=== PATIENT | male | born 1980 | race Caucasian/White ===

== ENCOUNTER 2023-02-05 09:37 | Outpatient (CLI) | payer MEDICAID, OTHER, SELFPAY | END 2023-02-05 09:38 | disposition home or self-care (01) | PROVIDERS: PCP Physician Assistant Medical; Visit Provider Physician Assistant Medical | DX: Z11.3 Encounter for screening for infections with a predominantly sexual mode of transmission (principal) | CPT/HCPCS: 86592; 86703; 86706; 86803; 87252; 87340; 87491; 87529; 87591 ==

== ENCOUNTER 2024-07-14 13:41 | Outpatient (CLI) | payer MEDICAID, SELFPAY ==
--- OUTSIDE RECORDS SUMMARY | 2024-07-14 13:46 | XMS_ITS | Clinical Summary ---
Author Organization [facility] Address [address], [place] [address] Care Team Providers Care Hr Business Partner Consultant Name Role Phone Osorio Dunn PA-C Primary Care Provider [phone] Source Comments You are receiving this document as you are listed as the primary care provider,follow-up provider, or the patient has been referred to you for consultation.This is in compliance with the Medicare and[facility] EHR Incentive Program,which states Providers who transition their patient to another setting of careor provider of care or refers their patient to another provider of care shouldprovide summary care record for each transition of care or referral. [facility] Allergies Active Allergy Reactions Criticality Noted Date Comments Gabapentin Gastrointestinal 01/29/2023 Methocarbamol Gastrointestinal 06/16/2023 Medications Medication Sig Dispensed Refills Start Date End Date Status acetaminophen (TYLENOL) 325 MG tablet Take 2 Tablets (650 mg) by mouth three times a day as needed for Pain. Work comp 100 Tablet 1 3 Active cetirizine (ZYRTEC) 10 MG tablet Take 1 Tablet (10 mg) by mouth daily. 30 Tablet 4 Active ALBUterol sulfate HFA 108 (90 Base) MCG/ACT inhaler Inhale 2 Puffs 4 times a day. 8 g 4 Active fluticasone propionate (FLONASE) 50 MCG/ACT nasal solutionIndication s:Throat irritation,Metalli c taste Place 2 Sprays into both nostrils daily. decrease to 1 spray per nostril daily if symptoms controlled 16 g 11 4 Active omeprazole (PRILOSEC) 20 MG capsuleIndications :Throat irritation,Metalli c taste Take 1 Capsule (20 mg) by mouth daily. Take 1 hour before a meal. 30 Capsule 1 4 07/11/20 25 Active ALBUterol sulfate HFA inhalation Inhale 1-2 puffs every 4 hours as needed for Wheezing. 8 g 0 4 07/05/20 24 Discontinued(*M ed change OR same med OR reorder, new dose/directions ) clotrimazole (LOTRIMIN) 1 % cream Apply topically two times a day. Was prescribed by pharmacist to relieve white spots found on both sides of neck, has not been working 07/11/20 24 Discontinued omeprazole (PRILOSEC) 20 MG capsule Take 1 Capsule (20 mg) by mouth daily. Take 1 hour before a meal. 90 Capsule 3 3 07/11/20 24 Discontinued(*M ed change OR same med OR reorder, new dose/directions ) tiZANidine (ZANAFLEX) 2 MG tablet Take 1-2 Tablets (2-4 mg) by mouth at bedtime as needed for Other (Muscle pain and tension). 60 Tablet 1 3 07/11/20 24 Discontinued olopatadine (PATADAY) 0.2 % eye drop solution Place 1 Drop into both eyes daily. 2.5 mL 3 07/11/20 24 Discontinued ondansetron (ZOFRAN-ODT) 4 MG disintegrating tablet Take 1 Tablet (4 mg) by mouth every 8 hours as needed for Nausea. 2 Tablet 4 07/11/20 24 Discontinued dexAMETHasone (DECADRON) 4 MG tablet Take 2 tablets today, one tomorrow and one in 3 days if throat still sore 4 Tablet 4 07/11/20 24 Discontinued metroNIDAZOLE (FLAGYL) 500 MG tablet Take 4 Tablets (2,000 mg) by mouth once. 4 07/11/20 24 Discontinued predniSONE (DELTASONE) 20 MG tabletIndications: Exposure to chemical inhalation,Dry cough,Wheezing Take 2 Tablets (40 mg) by mouth daily. 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 Allergic rhinitis 02/06/2014 Hypoesthesia 02/06/2014 Encounters Date Type Department Care Team Description 07/13/2024 Telephone [facility] [address] [place] [address] Osorio Dunn PA-C Plan of Care 07/11/2024 1:50 PM CDT Lab Visit [facility] [address] [place] [address] Hematuria, unspecified type; Fatigue, unspecified type 07/11/2024 11:30 AM CDT Office Visit [facility] [id number] [place] [address] Osorio Dunn PA-C Exposure to chemical inhalation (Primary Dx); Throat irritation; Hematuria, unspecified type; Dry cough; Metallic taste; Fatigue, unspecified type; Pleuritic chest pain; Wheezing 07/11/2024 Telephone [facility] [address] [place] [address] Osorio Dunn PA-C Plan of Care 07/06/2024 Telephone [facility] [address] [place] [address] Unassigned, Provider REFERRAL REQUEST 07/05/2024 5:40 PM CDT [facility] [address] [place] [address] Jean Marie aJved MD Exposure to chemical inhalation; Acute bronchospasm; Encounter related to worker's compensation claim 05/10/2024 1:10 PM CDT Lab Visit [facility] [address] [place] [phone] Routine screening for STI (sexually transmitted infection) 05/10/2024 12:40 PM CDT Office Visit [facility] [address] [place] [address] Dennis Tsai MBBS Pharyngitis, unspecified etiology; Routine screening for STI (sexually transmitted infection) from Last 3 Months Immunizations Name Administration Dates Next Due DTaP, Unspecified Formulation 11/14/2019 Flu Vac (3+ yrs) 07/20/2013,09/21/2008, 7 Flu Vac Preserv Free (3+yrs) 07/17/2010,08/23/20 09 Fluzone Qiv Multidose Vial 0.25 (6-35 Mos) 08/26,07/24/2017 HepB Adult (Engerix-B, 20+ y rs, 3 dose series) 08/04/2015,11/09/2013 MMR 09/05/2015,08/06/2015 Td 10/16/1997 Tdap 11/14/2019,09/13/2010 Varicella 09/05/2015,08/06/2015 Social History Tobacco Use Types Packs/Day Years Used Date Smoking Tobacco: Former Cigarettes Smokeless Tobacco: Never Tobacco Cessation:Counseling Given: Not Answered Alcohol Use Standard Drinks/Week Comments Not Currently 0 (1 standard drink = 0.6 oz pur e alcohol) PHQ-2 Answer Date Recorded PHQ-2 Score 4 07/11/2024 Sex and Gender Information Value Date Recorded Sex Assigned at Not on file Gender Identity Not on file Sexual Orientation Not on file Last Filed Vital Signs Vital Sign Reading Time Taken Comments Blood Pressure 113/61 07/11/2024 10:51 AM CDT Pulse 81 07/11/2024 10:51 AM CDT Temperature 36.4 ??C (97.6 ??F) 07/05/2024 5:22 PM CD T Respiratory Rate 18 07/05/2024 5:22 PM CDT Oxygen Saturation 97% 07/05/2024 5:22 PM CDT Inhaled Oxygen Concentration - - Weight 79.3 kg (174 lb 12.8 oz) 024 10:51 AM CDT Height 159.7 cm (5' 2.87) 07/11/2024 1 0:51 AM CDT Body Mass Index 31.09 07/11/2024 10:51 AM CDT Plan of Treatment Upcoming Encounters Date Type Department Care Team (Late st Contact Info) Description 07/21/2024 9:30 AM CDT Appointment [facility] [address] [place] [address] [address] [place] [address] Dioni Gamble PA-C [address] [place] [address] Health Maintenance Due Date Last Done Comments Colon Cancer Screening Plan Due 1978 Diabetes Screening- (based on age and BMI) 1978 Hep B Screening ([employer]) 1979 Adult Preventive Visit 1996 Cholesterol 2013 HepB (3) 09/29/2015 08/04/2015, 11/09/2013 COVID-19 Vaccine ( season) 2024 Influenza (#1) 2024 08/26/2019, 03/2017, 07/20/2013, Additional history exists Zoster/Shingles (1 of 2) 2028 DTaP/Tdap/Td (4 - Tdap) 11/14/2029 11/14/19, 11/14/2019, 09/13/2010, Additional history exists HIV Screening (Preventive Services) Completed 05/10/2024, 06/02/2023, 04/23/2022, Additional history exists Hep C Screening (Preventive Services) Completed 05/10/2024 HepA Aged Out No longer eligi ble based on patient's age to complete this topic Hib Aged Out No longer eligi ble based on patient's age to complete this topic IPV (Polio) Aged Out No longer eligi ble based on patient's age to complete this topic MCV4 Aged Out No longer eligi ble based on patient's age to complete this topic Pneumococcal Aged Out No longer eligi ble based on patient's age to complete this topic Procedures Procedure Name Priority Date/Time Associated Diagnosis Comments UA MICRO Routine 07/11/2024 11:47 AM CDT Hematuria, unspecified type URINALYSIS ROUTINE, MICRO/CULTURE IF POS Routine 07/11/2024 11:47 AM CDT Hematuria, unspecified type VITAMIN D 25-HYDROXY, TOTAL Routine 07/11/2024 11:44 AM CDT Fatigue, unspecified type VITAMIN B12 ONLY Routine 07/11/2024 11:4 4 AM CDT Fatigue, unspecified type TRANSFERRIN Routine 07/11/2024 11:44 AM CDT Fatigue, unspecified type FERRITIN Routine 07/11/2024 11:44 AM CDT Fatigue, unspecified type COMPLETE BLOOD COUNT-NO DIFF Routine 07/11/2024 11:44 AM CDT Fatigue, unspecified type COMPREHENSIVE METABOLIC PANEL Routine 07/11/2024 11:44 AM CDT Fatigue, unspecified type CHLAMYDIA & GC, URINE (14 YEARS AND OLDER) Routine 05/10/2024 1:14 PM CDT Routine screening for STI (sexually transmitted infection) TREPONEMA SCREEN Routine 05/10/2024 1:09 PM CDT Routine screening for STI (sexually transmitted infection) HEPATITIS C ANTIBODY, WITH REFLEX Routine 05/10/2024 1:09 PM CDT Routine screening for STI (sexually transmitted infection) HIV 1/2 AG/AB 4TH GEN Routine 05/10/2024 1:09 PM CDT Routine screening for STI (sexually transmitted infection) STREP GROUP A, MOLECULAR DETECTION STAT 05/10/2024 12:41 PM CDT Pharyngitis, unspecified etiology from Last 3 Months Results * (ABNORMAL) Urinalysis Routine, Micro/Culture if Pos: Clean Catch (07/11/2024 11:47 AM CDT) Urine Culture Comment Urinalysis results do not meet criteria for urine culture reflex. 07/11/2024 12:06 PM CDT [facility] Urine Color Straw 07/11/2024 12:06 PM CDT [facility] Urine Clarity Clear Clear 07/11/2024 12:06 PM CDT [facility] Specific [place], Urine 1.020 1.005 - 1.030 07/11/2024 12:06 PM [facility] PH Urine 6.5 5.0 - 8.0 07/11/2024 12:06 PM [facility] Protein, Urine Qual (mg/dL) Negative Neg/Trace 07/11/2024 12:06 PM [facility] Glucose Urine Qual (mg/dL) Negative Negative 07/11/2024 12:06 PM [facility] Ketones, Urine (mg/dL) Negative Negative 07/11/2024 12:06 PM [facility] Urobilinogen, Urine (EU/dL) 0.2 <2.0 07/11/2024 12:06 PM [facility] Bilirubin Urine Negative Negative 07/11/2024 12:06 PM [facility] Blood, Urine Small(A) Neg/Trace 07/11/2024 12:06 PM [facility] Nitrite Urine Negative Negative 07/11/2024 12:06 PM [facility] Leukocyte Est. Negative Negative 07/11/2024 12:06 PM [facility] Urine Source Clean Catch 07/11/2024 12:06 PM [facility] Urine URINE SPECIMEN COLLECTION, CLEAN CATCH / Unknown Non-blood Collection / Unknown 07/11/2024 11:47 AM CDT 07/11/2024 11:47 AM CDT Osorio Dunn PA-C LAB_1 [facility] [address] [place] [address] * (ABNORMAL) Urine Microscopic Evaluation: Clean Catch (07/11/2024 11:47 AM CDT) Red Blood Cells 4-7(A) 0 - 3 /HPF 07/11/2024 12:06 PM [facility] White Blood Cells 0-5 0 - 5 /HPF 07/11/2024 12:06 PM [facility] Bacteria Occasional(A) None Seen /HPF 07/11/2024 12:06 PM [facility] Squamous Epithelial Cells Occasional None Seen, Occasiona l, Few /HPF 07/11/2024 12:06 PM [facility] Mucus Present(A) None Seen /HPF 07/11/2024 12:06 PM CDT [facility] Urine URINE SPECIMEN COLLECTION, CLEAN CATCH / Unknown Non-blood Collection / Unknown 07/11/2024 11:47 AM CDT 07/11/2024 11:47 AM CDT Osorio Marty Mona JULES LAB_1 Performing Organization Address [facility]/ZIP Co de Phone Number [facility] [address] [place] [address] * (ABNORMAL) Vitamin D 25-Hydroxy, Total (07/11/2024 11:44 AM CDT) Vitamin D, 25-OH, Total 26(L) 30 - 80 ng/mL 07/11/2024 5:44 PM T [facility] Blood Venipuncture / Unknown 07/11/2024 11:44 AM CDT 07/11/2024 11:44 AM CDT Narrative [facility] - 07/11/2024 5:44 PM CDT Expected values Deficiency: <20 ng/mL Insufficiency: 20-29 ng/mL Optimum: 30-80 ng/mL Possible toxicity: >80 ng/mL Osorio Dunn PA-C LAB_1 Performing Organization Address [facility] Co de Phone Number [facility] [address] [place], [place] [phone] [place] [address] * Comprehensive Metabolic Panel (07/11/2024 11:44 AM CDT) Sodium 140 136 - 145 mmol/L 07/11/2024 3:39 PM T [facility] Potassium 4.0 3.5 - 5.1 mmol/L 07/11/2024 3:39 PM T [facility] Chloride 106 98 - 109 mmol/L 07/11/2024 3:39 PM T [facility] CO2 24 20 - 29 mmol/L 07/11/2024 3:39 PM T [facility] Anion Gap 10 6 - 16 mmol/L 07/11/2024 3:39 PM T [facility] Calcium 9.5 8.4 - 10.4 mg/dL 07/11/2024 3:39 PM [facility] BUN 15 7 - 26 mg/dL 07/11/2024 3:39 PM [facility] Creatinine 0.80 0.73 - 1.18 mg/dL 07/11/2024 3:39 PM [facility] Alkaline Phosphatase 74 40 - 150 U/L 07/11/2024 3:39 PM [facility] AST (SGOT) 22 10 - 40 U/L 07/11/2024 3:39 PM [facility] ALT (SGPT) 22 <=55 U/L 07/11/2024 3:39 PM [facility] Bilirubin, Total 0.4 0.2 - 1.2 mg/dL 07/11/2024 3:39 PM [facility] Protein, Total 7.5 6.4 - 8.3 g/dL 07/11/2024 3:39 PM [facility] Albumin 4.0 3.5 - 5.0 g/dL 07/11/2024 3:39 PM [facility] Glucose 98 70 - 100 mg/dL 07/11/2024 3:39 PM [facility] Comment:The given reference range is for the fasting state. Non-fasting reference range for glucose is 70 - 180 mg/dL. GFR, Estimated >60 >60 mL/min/1.7 3m2 07/11/2024 3:39 PM [facility] Hours Fasting 4.0 8 - 12 Hours 07/11/2024 3:39 PM [facility] Blood Venipuncture / Unknown 07/11/2024 11:44 AM CDT 07/11/2024 11:44 AM CDT Osorio Dunn PA-C LAB_1 [facility] [address] [place] [address] * (ABNORMAL) Complete Blood Count-No Diff (07/11/2024 11:44 AM CDT) WBC 5.9 3.5 - 10.5 x10(9)/L 07/11/2024 11:49 AM [facility] RBC 4.70 4.32 - 5.72 x10(12)/L 07/11/2024 11:49 AM [facility] Hemoglobin 14.8 13.5 - 17.5 g/dL 07/11/2024 11:49 AM [facility] HCT 41.7 38.8 - 50.0 % 07/11/2024 11:49 AM [facility] MCV 88.7 80.0 - 100.0 fL 07/11/2024 11:49 AM [facility] MCH 31.5 27.6 - 33.3 pg 07/11/2024 11:49 AM [facility] MCHC 35.5(H) 31.5 - 35.2 g/dL 07/11/2024 11:49 AM [facility] RDW 13.2 11.9 - 15.5 % 07/11/2024 11:49 AM [facility] Platelets 263 150 - 450 x10(9)/L 07/11/2024 11:49 AM [facility] Automated NRBC 0 <=0 /100 WBC 07/11/2024 11:49 AM [facility] Blood Venipuncture / Unknown 07/11/2024 11:44 AM CDT 07/11/2024 11:44 AM CDT Osorio Dunn PA-C LAB_1 Performing Organization Address [facility]/ZIP Co de Phone Number [facility] [address] [place] [address] * Transferrin (07/11/2024 11:44 AM CDT) [facility] Transferrin 247 174 - 364 mg/dL 07/11/2024 4:56 PM CDT [facility] Blood Venipuncture / Unknown 07/11/2024 11:44 AM CDT 07/11/2024 11:44 AM CDT Osorio Dunn PA-C LAB_1 Performing Organization Address City/[facility]/ZIP Co de Phone Number [facility] [address] * Ferritin (07/11/2024 11:44 AM CDT) Pathologist [facility] Ferritin 268 22 - 275 ng/mL 07/11/2024 5:36 PM CDT [facility] Blood Venipuncture / Unknown 07/11/2024 11:44 AM CDT 07/11/2024 11:44 AM CDT Osorio Dunn PA-C LAB_1 Performing Organization Address [facility] Co de Phone Number [facility] [address] [place] [address] * Vitamin B12 Only (07/11/2024 11:44 AM CDT) Pathologist [facility] Vitamin B12 423 213 - 816 pg/mL 07/11/2024 5:43 PM CDT [facility] Blood Venipuncture / Unknown 07/11/2024 11:44 AM CDT 07/11/2024 11:44 AM CDT Osorio Dunn PA-C LAB_1 Performing Organization Address [facility] de Phone Number [facility] [address] [place] [address] * Chlamydia & GC, Urine (05/10/2024 1:14 PM CDT) Pathologist [facility] Chlamydia Trachomatis STD Not Detected Not Detected 05/11/2024 12:07 AM CDT [facility] N. gonorrhoeae STD Not Detected Not Detected 05/11/2024 12:07 AM CDT [facility] Urine STD (Urine for STD) Non-blood Collection / Unknown 05/10/2024 1:14 PM CDT 05/10/2024 1:14 PM CDT Narrative [facility] - 05/11/2024 12:07 AM CDT Test performed by Property Insurance Claims Examiner Mediated Amplification (TMA). Urine Volume submitted was greater than 30 ml. Excess collection volume may decrease test sensitivity. Recollection suggested if clinically indicated. Dennis PATRICIA LAB_1 Performing Organization Address City/[facility]/ZIP Co de Phone Number [facility] [address] * Treponema Screen (05/10/2024 1:09 PM CDT) Treponema Screen Interpretation Non Reactive Non Reactive 05/10/2024 6:30 PM CDT [facility] Blood Venipuncture / Unknown 05/10/2024 1:09 PM CDT 05/10/2024 1:09 PM CDT Dennis PATRICIA LAB_1 Performing Organization Address [facility] Co de Phone Number [facility] [address] [place] [address] * HIV 1/2 Ag/Ab 4th Generation (05/10/2024 1:09 PM CDT) Pathologist [facility] HIV 1/2 Antigen/Antib annetta (4th generation) Negative (Non Reactive) Negative (Non Reactive) 05/10/2024 8:55 PM CDT [facility] Comment:HIV-1 p24 Antigen an d HIV-1/HIV-2 Antibody not detected Blood Venipuncture / Unknown 05/10/2024 1:09 PM CDT 05/10/2024 1:09 PM CDT Dennis Tsai BELEM LAB_1 Performing Organization Address [facility] Co de Phone Number [facility] [address] * Hepatitis C Antibody, with Reflex (05/10/2024 1:09 PM CDT) Hepatitis C Antibody Negative (Non Reactive) Negative (Non Reactive) 05/10/2024 8:55 PM CDT [facility] Comment:Antibodies to HCV no t detected. Does not exclude the possiblity of exposure to HCV. Blood Venipuncture / Unknown 05/10/2024 1:09 PM CDT 05/10/2024 1:09 PM CDT Dennis Jones Eulalio CORDON LAB_1 [facility] [address] [place], [place] [address] * STREP GROUP A, Molecular Detection-Collect Now in current encounter (05/10/2024 12:41 PM CDT) Group A Strep Not Detected Not Detected 024 1:44 PM CDT [facility] Comment:Methodology: Qualita tive real-time PCR assay Swab (Source Required) THROAT SWAB / Unknown Non-blood Collection / Unknown 05/10/2024 12:41 PM CDT 05/10/2024 12:55 PM CDT Dennis Jones Eulalio PATRICIA LAB_1 Performing Organization Address City/[facility]/ZIP Co de Phone Number [facility] [address] [place] [address], [facility] from Last 3 Months Care Teams Hr Business Partner Consultant Relationship Specialty Start Date End Date Osorio Dunn PA-C [address] [address] [phone] PCP - General Physician Travel Physical Therapist 07/11/24
--- OUTSIDE RECORDS SUMMARY | 2024-07-14 13:46 | XMS_ITS | Encounter Summary ---
Author Organization [facility] Address [address], [place] [address] Care Team Providers Care Press Brake Operator Name Role Phone Osorio Garcia PA-C Primary Care Provider [phone] Reason for Referral * Procedure/Equipment (Routine) - Incomplete Specialty Diagnoses / Procedures Referred By Contac t Referred To Contact Diagnoses Exposure to chemical inhalation Throat irritation Dry cough Wheezing Procedures CT Chest WO IV Cont Osorio Garcia PA-C [address] [place] [address] Referral ID Status Reason Start Date Expiration Date V isits Requested Visits Authorized [id number] Incomplete 07/11/2024 10/10/2025 1 1 Reason for Visit * Reason Comments Establish Care Referral Occ med Follow-up UC f/u, pt states fo r SOB and fatigue, headache r/t smoke from a building coming into my work. Pt reports ongoing fatigue and cough. Encounter Details Date Type Department Care Team (Late st Contact Info) Description 07/11/2024 11:30 AM CDT Office Visit [facility] [address] [place] [address] Osorio Garcia PA-C [address] [place] [address] Exposure to chemical inhalation (Primary Dx); Throat irritation; Hematuria, unspecified type; Dry cough; Metallic taste; Fatigue, unspecified type; Pleuritic chest pain; Wheezing Social History Tobacco Use Types Packs/Day Years [...] on file Sexual Orientation Not on file documented as of this encounter Last Filed Vital Signs Vital Sign Reading Time Taken Comments Blood Pressure 113/61 07/11/2024 10:51 AM CDT Pulse 81 07/11/2024 10:51 AM CDT Temperature - - Respiratory Rate - - Oxygen Saturation - - Inhaled Oxygen Concentration - - Weight 79.3 kg (174 lb 12.8 oz) 024 10:51 AM CDT Height 159.7 cm (5' 2.87) 07/11/2024 1 0:51 AM CDT Body Mass Index 31.09 07/11/2024 10:51 AM CDT documented in this encounter Patient Instructions * Patient Instructions* Osorio Garcia PA-C - 07/11/2024 11:30 AM CDT It was a pleasure to see you in clinic today! Labs today, I will reach out with results Start taking flonase daily and omeprazole daily Take prednisone 40mg for 5 days, call to schedule CT scan Follow up with occupational medicine provider as scheduled documented in this encounter Progress Notes * Osorio Garcia PA-C - 07/11/2024 11:30 AM CDT Chriss Powell [id number] SUBJECTIVE: CHRISS POWELL is a 44 y.o. male who presents to the clinic for follow up regarding abnormalsymptoms in regards to inhalation at his occupation. 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 Has been seen 3 times in urgent care in regards to his symptoms. 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 He has been experiencing intermittent unspecified fatigue, metallic taste in his mouth, dry cough, shortness of breath with exertion since beginning his new job at [employer]. Has spoken with multiple people in human resources at his occupation andhas been told to see a quality assurance supervisor trim. Denies any fevers, chills. Denies any snoring, denies any nausea or vomiting, abdominal pain.Other coworkers are experiencing similar symptoms. He has tried wearing a mask at work though notes that this leads to worsening difficulty breathing. Patient endorses that he was a former smoker, quit approximately 2004 Does endorse pleuritic chest pain in his posterior ribcage upon exhalation though denies chest pressure. Denies any known injury to the chest or upper back. Notes that his unspecified fatigue and respiratory symptoms will come for a few days at time where he will miss work and then resolve on theirown. When he was seen 06/22/2024 largely unremarkable lab work up outside of incidental hematuria. Was re-evaluated on 07/05/2024 for similar symptoms. He was provided with albuterol inhaler as well as cetirizine for symptomatic cares. Has not noticed any improvement from these interventions. He was given an urgent referral to Occupational Medicine, his appointment is scheduled for 07/21/2024. Was referred to pulmonology though he was told he did not meet criteria for a pulmonology appointment.Patient notes that he was unfortunately having to take his own paid time off in order to be away from work until his upcoming occupational medicine appointment PAST MEDICAL AND SURGICAL HISTORY REVIEWED IN [facility] FAMILY AND SOCIAL HISTORY REVIEWED IN [facility] MEDICATIONS: Outpatient Medications Prior to Visit Medication Sig acetaminophen (TYLENOL) 325 MG tablet Take 2 Tablets (650 mg) by mouth three times a day as needed for Pain. Work comp ALBUterol sulfate HFA 108 (90 Base) MCG/ACT inhaler Inhale 2 Puffs 4 times a day. cetirizine (ZYRTEC) 10 MG tablet Take 1 Tablet (10 mg) by mouth daily. [DISCONTINUED] clotrimazole (LOTRIMIN) 1 % cream Apply topically two times a day. Was prescribed bypharmacist to relieve white spots found on both sides of neck, has not been working (Patient not taking: Reported on 07/28/2023) [DISCONTINUED] dexAMETHasone (DECADRON) 4 MG tablet Take 2 tablets today, one tomorrow and one in 3days if throat still sore (Patient not taking: Reported on 07/11/2024) [DISCONTINUED] metroNIDAZOLE (FLAGYL) 500 MG tablet Take 4 Tablets (2,000 mg) by mouth once. (Patient not taking: Reported on 07/11/2024) [DISCONTINUED] olopatadine (PATADAY) 0.2 % eye drop solution Place 1 Drop into both eyes daily. (Patient not taking: Reported on 07/11/2024) [DISCONTINUED] omeprazole (PRILOSEC) 20 MG capsule Take 1 Capsule (20 mg) by mouth daily. Take 1 hour before a meal. (Patient not taking: Reported on 07/28/2023) [DISCONTINUED] ondansetron (ZOFRAN-ODT) 4 MG disintegrating tablet Take 1 Tablet (4 mg) by mouth every 8 hours as needed for Nausea. (Patient not taking: Reported on 07/11/2024) [DISCONTINUED] tiZANidine (ZANAFLEX) 2 MG tablet Take 1-2 Tablets (2-4 mg) by mouth at bedtime as needed for Other (Muscle pain and tension). (Patient not taking: Reported on 07/28/2023) No facility-administered medications prior to visit. ALLERGIES: Gabapentin and Methocarbamol ROS:NO fever, chills.. No palpitations. No abdominal pain, nausea, vomiting, diarrhea. No black or bloody stools. No urinary symptoms. No abnormal headaches or dizziness. Endorses fatigue, dry cough,irritation of the throat, metallic taste in his mouth, dyspnea on exertion OBJECTIVE BP 113/61 (BP Location: Left Arm, BP Cuff Size: Large) Pulse 81 Ht 1.597 m (5' 2.87) Wt 79.3kg (174 lb 12.8 oz) BMI 31.09 kg/m?? GENERAL: This is a well-developed, well-nourished male in no acute distress. HEENT: Head AT/NC. External ears normal. TMs clear, bony landmarks visible. Nares patent, turbinates without lesions or drainage. Oropharynx non- erythematous. Uvula midline. Dentition in good condition. NECK: Supple, thyroid without enlargement or nodules. No lymphadenopathy. LUNGS: Symmetrical expansion, widespread inspiratory and expiratory wheezing HEART: Regular rate and rhythm. No murmurs. ABDOMEN: Soft, non-tender, no guarding or masses. No HSM. EXTREMITIES: No edema. Strong and equal peripheral pulses. SKIN: No obvious rashes or suspicious lesions PSYCH: Well-oriented. Appropriate mood and affect. NEURO: Speech and gait are normal. ASSESSMENT/PLAN: Chriss was seen today for establish care, referral and follow-up. Diagnoses and all orders for this visit: Exposure to chemical inhalation - CT Chest WO IV Cont; Future Throat irritation - CT Chest WO IV Cont; Future - fluticasone propionate (FLONASE) 50 MCG/ACT nasal solution; Place 2 Sprays into both nostrils daily. decrease to 1 spray per nostril daily if symptoms controlled - omeprazole (PRILOSEC) 20 MG capsule; Take 1 Capsule (20 mg) by mouth daily. Take 1 hour before a meal. Hematuria, unspecified type - Urinalysis Routine, Micro/Culture if Pos: Clean Catch; Future Dry cough - CT Chest WO IV Cont; Future Metallic taste - fluticasone propionate (FLONASE) 50 MCG/ACT nasal solution; Place 2 Sprays into both nostrils daily. decrease to 1 spray per nostril daily if symptoms controlled - omeprazole (PRILOSEC) 20 MG capsule; Take 1 Capsule (20 mg) by mouth daily. Take 1 hour before a meal. Fatigue, unspecified type - Comprehensive Metabolic Panel; Future - Complete Blood Count-No Diff; Future - Ferritin; Future - Transferrin; Future - Vitamin B12 Only; Future - Vitamin D 25-Hydroxy, Total; Future Pleuritic chest pain Wheezing - CT Chest WO IV Cont; Future Discussed with the patient that it was possible he was experiencing his symptoms as a result of occupational exposure. Recommend CT scan of the chest as well as lab evaluation for cause of his fatigue. Suspect he may be experiencing GERD or postnasal drip in regards to the metallic taste in his mouth and generalized throat irritation. Patient should follow up with occupational medicine as previously discussed for further worker's compensation discussion. Osorio Garcia PA-C NB: A voice recognition dictation system was used for this note. Please excuse any typographical errors. documented in this encounter Plan of Treatment Upcoming Encounters Date Type Department Care Team (Late st Contact Info) Description 07/21/2024 9:30 AM CDT Appointment [facility] [address] [place] [address] Dioni Gamble PA-C [address] [place] [address] Scheduled Orders Name Type Priority Associated Diagnoses Orde r Schedule CT Chest WO IV Cont Imaging New Same Day Exposure to chemical inhalation Throat irritation Dry cough Wheezing Expected: 07/11/2024 (Approximate), Expires: 07/11/2025 documented as of this encounter Results * (ABNORMAL) Urinalysis Routine, Micro/Culture if Pos: Clean Catch (07/11/2024 11:47 AM CDT) Urine Culture Comment Urinalysis results do not meet criteria for urine culture reflex. 07/11/2024 12:06 PM [facility] Urine Color Straw 07/11/2024 12:06 PM [facility] Urine Clarity Clear Clear 07/11/2024 12:06 PM [facility] Specific [place], Urine 1.020 1.005 - 1.030 07/11/2024 12:06 PM [facility] PH Urine 6.5 5.0 - 8.0 07/11/2024 12:06 PM [facility] Protein, Urine Qual (mg/dL) Negative Neg/Trace 07/11/2024 12:06 PM [facility] Glucose Urine Qual (mg/dL) Negative Negative 07/11/2024 12:06 PM [facility] Ketones, Urine (mg/dL) Negative Negative 07/11/2024 12:06 PM [facility] Urobilinogen, Urine (EU/dL) 0.2 <2.0 07/11/2024 12:06 PM [facility] Bilirubin Urine Negative Negative 07/11/2024 12:06 PM [facility] Blood, Urine Small(A) Neg/Trace 07/11/2024 12:06 PM CDT [facility] Nitrite Urine Negative Negative 07/11/2024 12:06 PM CDT [facility] Leukocyte Est. Negative Negative 07/11/2024 12:06 PM CDT [facility] Urine Source Clean Catch 07/11/2024 12:06 PM CDT [facility] Urine URINE SPECIMEN COLLECTION, CLEAN CATCH / Unknown Non-blood Collection / Unknown 07/11/2024 11:47 AM CDT 07/11/2024 11:47 AM CDT Osorio Garcia PA-C LAB_1 Performing Organization Address City/[facility]/ZIP Co de Phone Number [facility] [address] [place] [address] * (ABNORMAL) Vitamin D 25-Hydroxy, Total (07/11/2024 11:44 AM CDT) Vitamin D, 25-OH, Total 26(L) 30 - 80 ng/mL 07/11/2024 5:44 PM CDT [facility] Blood Venipuncture / Unknown 07/11/2024 11:44 AM CDT 07/11/2024 11:44 AM CDT Narrative [facility] - 07/11/2024 5:44 PM CDT Expected values Deficiency: <20 ng/mL Insufficiency: 20-29 ng/mL Optimum: 30-80 ng/mL Possible toxicity: >80 ng/mL Osorio Garcia PA-C LAB_1 [facility] [address] * Vitamin B12 Only (07/11/2024 11:44 AM CDT) Vitamin B12 423 213 - 816 pg/mL 07/11/2024 5:43 PM CDT [facility] Blood Venipuncture / Unknown 07/11/2024 11:44 AM CDT 07/11/2024 11:44 AM CDT Osorio Garcia PA-C LAB_1 Performing Organization Address [facility] Co de Phone Number [facility] [address] * Transferrin (07/11/2024 11:44 AM CDT) Transferrin 247 174 - 364 mg/dL 07/11/2024 4:56 PM CDT [facility] Blood Venipuncture / Unknown 07/11/2024 11:44 AM CDT 07/11/2024 11:44 AM CDT Osorio Ferguson Mona JULES LAB_1 Performing Organization Address [facility] de Phone Number [facility] [address] * Ferritin (07/11/2024 11:44 AM CDT) Pathologist [facility] Ferritin 268 22 - 275 ng/mL 07/11/2024 5:36 PM CDT [facility] Blood Venipuncture / Unknown 07/11/2024 11:44 AM CDT 07/11/2024 11:44 AM CDT Osorio Ferguson Mona JULES LAB_1 Performing Organization Address [facility] de Phone Number [facility] [address] * (ABNORMAL) Complete Blood Count-No Diff (07/11/2024 11:44 AM CDT) Pathologist [facility] WBC 5.9 3.5 - 10.5 x10(9)/L 07/11/2024 11:49 AM CDT [facility] RBC 4.70 4.32 - 5.72 x10(12)/L 07/11/2024 11:49 AM CDT [facility] Hemoglobin 14.8 13.5 - 17.5 g/dL 07/11/2024 11:49 AM CDT [facility] HCT 41.7 38.8 - 50.0 % 07/11/2024 11:49 AM CDT [facility] MCV 88.7 80.0 - 100.0 fL 07/11/2024 11:49 AM [facility] MCH 31.5 27.6 - 33.3 pg 07/11/2024 11:49 AM [facility] MCHC 35.5(H) 31.5 - 35.2 g/dL 07/11/2024 11:49 AM [facility] RDW 13.2 11.9 - 15.5 % 07/11/2024 11:49 AM [facility] Platelets 263 150 - 450 x10(9)/L 07/11/2024 11:49 AM [facility] Automated NRBC 0 <=0 /100 WBC 07/11/2024 11:49 AM [facility] Blood Venipuncture / Unknown 07/11/2024 11:44 AM CDT 07/11/2024 11:44 AM CDT Osorio Garcia PA-C LAB_1 [facility] [address] [place] [address] * Comprehensive Metabolic Panel (07/11/2024 11:44 AM CDT) Sodium 140 136 - 145 mmol/L 07/11/2024 3:39 PM [facility] Potassium 4.0 3.5 - 5.1 mmol/L 07/11/2024 3:39 PM [facility] Chloride 106 98 - 109 mmol/L 07/11/2024 3:39 PM [facility] CO2 24 20 - 29 mmol/L 07/11/2024 3:39 PM [facility] Anion Gap 10 6 - 16 mmol/L 07/11/2024 3:39 PM [facility] Calcium 9.5 8.4 - 10.4 mg/dL 07/11/2024 3:39 PM [facility] BUN 15 7 - 26 mg/dL 07/11/2024 3:39 PM [facility] Creatinine 0.80 0.73 - 1.18 mg/dL 07/11/2024 3:39 PM [facility] Alkaline Phosphatase 74 40 - 150 U/L 07/11/2024 3:39 PM [facility] AST (SGOT) 22 10 - 40 U/L 07/11/2024 3:39 PM [facility] ALT (SGPT) 22 <=55 U/L 07/11/2024 3:39 PM [facility] Bilirubin, Total 0.4 0.2 - 1.2 mg/dL 07/11/2024 3:39 PM [facility] Protein, Total 7.5 6.4 - 8.3 g/dL 07/11/2024 3:39 PM [facility] Albumin 4.0 3.5 - 5.0 g/dL 07/11/2024 3:39 PM [facility] Glucose 98 70 - 100 mg/dL 07/11/2024 3:39 PM [facility] Comment:The given reference range is for the fasting state. Non-fasting reference range for glucose is 70 - 180 mg/dL. GFR, Estimated >60 >60 mL/min/1.7 3m2 07/11/2024 3:39 PM [facility] Hours Fasting 4.0 8 - 12 Hours 07/11/2024 3:39 PM [facility] Blood Venipuncture / Unknown 07/11/2024 11:44 AM CDT 07/11/2024 11:44 AM T Osorio Garcia PA-C LAB_1 [facility] [address] [place] [address], [facility] documented in this encounter Visit Diagnoses Diagnosis Exposure to chemical inhalation- Primary Throat irritation Hematuria, unspecified type Dry cough Cough Metallic taste Disturbances of sensation of smell and taste Fatigue, unspecified type Pleuritic chest pain Painful respiration Wheezing documented in this encounter Care Teams Press Brake Operator Relationship Specialty Start Date End Date Osorio Garcia PA-C [address] [place] [address] PCP - General Physician Tunnel Kiln Repairer 07/11/24 documented as of this encounter
--- OUTSIDE RECORDS SUMMARY | 2024-07-14 13:46 | XMS_ITS | Encounter Summary ---
Author Organization [facility] Address [address], [place] [address] Care Team Providers Care Ward Assistant Name Role Phone No Primary/Referring, Phy Primary Care Provider Unavailable Reason for Referral * Consult/Transfer Care (Routine) - New Request Specialty Diagnoses / Procedures Referred By Madelyn hedrick Referred To Contact Diagnoses Exposure to chemical inhalation Jean Marie Javed MD [address] [place] [address] Referral ID Status Reason Start Date Expiration Date V isits Requested Visits Authorized [id number] New Request 07/07/2024 10/06/2025 1 1 Scheduling Instructions Your clinician has recommended an appointment with Occupational Medicine. You may call [phone] to schedule your appointment. We suggest you call your health insurance company about your coverage and benefits for this appointment. Question Answer Appointment Urgency? Within 1 Week (Urgent) Was this injury/medical condition sustained at Work? Yes Comments Chemical inhalation at work causing shortness of breath, cough, and fatigue. Reason for Visit * Reason Comments REFERRAL REQUEST Encounter Details Date Type Department Care Team (Late st Contact Info) Description 07/06/2024 [facility] Pul[facility] Medicine [address] [place], [place] [id number] Unassigned, Provider [address] [place] [address] REFERRAL REQUEST Social History Tobacco Use Types Packs/Day Years Used Date Smoking Tobacco: Never Sex and Gender Information Value Date Recorded Sex Assigned at Not on file Gender Identity Not on file Sexual Orientation Not on file documented as of this encounter Nursing Notes * Kalyaned Rika A - 07/07/2024 12:49 PM CDT Patient stopped in today because he has yet to receive a phone call to set up an appointment regarding the urgent referral. I did make an appointment with a Primary Care provider. Please call patientto set up the appointment. Thank you. * Veronika Mckeon RN - 07/07/2024 10:52 AM CDT Urgent referral placed for Occupational medicine per Dr. Javed. * Veronika Mckeon RN - 07/07/2024 8:42 AM CDT Please advise if Occupational medicine referral is to be routine or urgent. Thanks! * Ami Benson RN - 07/06/2024 12:38 PM CDT Thank you for your referral to the Pulmonary Department. A Pulmonary clinician has reviewed your request and determined it does not meet our criteria for a pulmonary consultation. The Pulmonary clinician has recommended that you refer pt to establish care with family medicine. Additional consideration would be to refer pt to Occupational Health d/t work related chemical exposure. If you would like to discuss this decision, please page from 8:30 AM - 3:30 PM Thursday - Thursday to speak with a clinician. * Tamy Darby - 07/06/2024 11:55 AM CDT Patient has an urgent order and was advised the department would be calling back to schedule. documented in this encounter Plan of Treatment Upcoming Encounters Date Type Department Care Team (Late st Contact Info) Description 07/21/2024 9:30 AM CDT Appointment [facility] [address], [address] [place] [address] Dioni Gamble, PALionC [address] [place], [place] [address] Scheduled Referrals Name Type Priority Associated Diagnoses Orde r Schedule Occupational Medicine Consult Adult/Peds Referral Routine Exposure to chemical inhalation Ordered: 07/07/2024 documented as of this encounter Visit Diagnoses Diagnosis Exposure to chemical inhalation documented in this encounter Care Teams Ward Assistant Relationship Specialty Start Date End Date No Primary/Referring, Phy PCP - General 11/25/22 4 documented as of this encounter
--- OUTSIDE RECORDS SUMMARY | 2024-07-14 13:46 | XMS_ITS | Encounter Summary ---
Author Organization [facility] Address [address], [place] [address] Care Team Providers Care Proc Tech Name Role Phone No Primary/Referring, Phy Primary Care Provider Unavailable Reason for Referral * Consult/Transfer Care (Routine) - New Request Specialty Diagnoses / Procedures Referred By Madelyn hedrick Referred To Contact Diagnoses Exposure to chemical inhalation Jean Marie Javed MD [address] [place] [address] Referral ID Status Reason Start Date Expiration Date V isits Requested Visits Authorized [id number] New Request 07/05/2024 10/04/2025 1 1 Scheduling Instructions Your clinician has recommended an appointment for with [facility]. You can quickly make your appointment online at [employer]/schedule. You can also call [phone] for help scheduling your appointment. We suggest you call your health insurance company about your coverage and benefits for this appointment. Question Answer Appointment Urgency? Within 1 Week (Urgent) Reason for visit? work exposure to chemical causing shortness of breath, cough and fatigue. Reason for Visit * Reason Comments Other Encounter Details Date Type Department Care Team (Late st Contact Info) Description 07/05/2024 5:40 PM CDT Office Visit [facility] [address] [place] [address] Jean Marie Javed MD [address] [place] [address] Exposure to chemical inhalation; Acute bronchospasm; Encounter related to worker's compensation claim Social History Tobacco Use Types Packs/Day Years Used Date Smoking Tobacco: Never Sex and Gender Information Value Date Recorded Sex Assigned at Not on file Gender Identity Not on file Sexual Orientation Not on file documented as of this encounter Last Filed Vital Signs Vital Sign Reading Time Taken Comments Blood Pressure 114/81 07/05/2024 5:22 PM CDT Pulse 74 07/05/2024 5:22 PM CDT Temperature 36.4 ??C (97.6 ??F) 07/05/2024 5:22 PM CD T Respiratory Rate 18 07/05/2024 5:22 PM CDT Oxygen Saturation 97% 07/05/2024 5:22 PM CDT Inhaled Oxygen Concentration - - Weight - - Height - - Body Mass Index - - documented in this encounter Patient Instructions * Patient Instructions* Jean Marie Javed MD - 07/05/2024 5:40 PM CDT Recommend doing steam baths at night and drink hot tea with lemon. May also use humidifier at night. Use albuterol inhaler 2 puffs up to 4x/day as needed for cough, shortness of breath. Take cetirizine daily for the allergies. documented in this encounter Progress Notes * Jean Marie Javed MD - 07/05/2024 5:40 PM CDT CHIEF COMPLAINT Chief Complaint Patient presents with Other HISTORY OF PRESENT ILLNESS 44 y.o. year old male presents to the Urgent Care today for evaluation of worker's comp evaluation for what he describes as allergic reaction. 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 He started working in the company since February of 2024 in in March he started having a bowel symptoms and has been relentless. Symptoms include coughing, nasal congestion, itchy watery eyes and shortness of breath and more importantly extreme fatigue. He just does not feel like himself. He has 2 HR folks and they recommend that he should come in to be evaluated. 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 So far denies any fever and chills and hematemesis. He also admitted that there couple of coworkers has somewhat similar symptoms along chronic headache. Reviewed Nursing Notes: Neftali Santiago RN 07/05/24 3681 Addendum Pt c/o dry metallic taste in mouth, wheezing, fatigue, red eyes and headaches for 1 week . 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 PRIOR HISTORY Medications: Outpatient Medications Prior to Visit Medication Sig Dispense Refill acetaminophen (TYLENOL) 325 MG tablet Take 2 Tablets (650 mg) by mouth three times a day as needed for Pain. Work comp (Patient not taking: Reported on 07/28/2023) 100 Tablet 1 clotrimazole (LOTRIMIN) 1 % cream Apply topically two times a day. Was prescribed by pharmacist to relieve white spots found on both sides of neck, has not been working (Patient not taking: Reported on 07/28/2023) dexAMETHasone (DECADRON) 4 MG tablet Take 2 tablets today, one tomorrow and one in 3 days if throatstill sore 4 Tablet 0 olopatadine (PATADAY) 0.2 % eye drop solution Place 1 Drop into both eyes daily. 2.5 mL 0 omeprazole (PRILOSEC) 20 MG capsule Take 1 Capsule (20 mg) by mouth daily. Take 1 hour before a meal. (Patient not taking: Reported on 07/28/2023) 90 Capsule 3 ondansetron (ZOFRAN-ODT) 4 MG disintegrating tablet Take 1 Tablet (4 mg) by mouth every 8 hours as needed for Nausea. 2 Tablet 0 tiZANidine (ZANAFLEX) 2 MG tablet Take 1-2 Tablets (2-4 mg) by mouth at bedtime as needed for Other(Muscle pain and tension). (Patient not taking: Reported on 07/28/2023) 60 Tablet 1 ALBUterol sulfate HFA inhalation Inhale 1-2 puffs every 4 hours as needed for Wheezing. (Patient not taking: Reported on 11/20/2022) 8 g 0 No facility-administered medications prior to visit. Reviewed via [facility] Chart Review/CareEverywhere: Allergies Past Medical HistoryThere is no problem list on file for this patient. Past Surgical History Social History Social History Tobacco Use Smoking status: Never Smokeless tobacco: Not on file Substance Use Topics Alcohol use: Not on file Drug use: Not on file PHYSICAL EXAM Vitals Reviewed: BP 114/81 (BP Location: Right Arm, BP Cuff Size: Regular - Long) Pulse 74 Temp 36.4 ??C (97.6 ??F) (Oral) Resp 18 SpO2 97% GENERAL: Healthy-appearing patient. Alert oriented x3. In no acute respiratory distress. HEAD: Normocephalic atraumatic. EYE: Nonicteric sclera. Conjunctiva without injection. ENT: Neck supple. Both ear canals and tympanic membranes appear to be intact and normal. Oropharynxis clear clear mucus. Nasal mucosa is pink with clear mucus. No sinus tenderness. CV: Regular rate and rhythm without murmur. Distal pulses are equally palpable and appear to be normal. PULM: Scattered wheezes noted with upper airway transmitted sounds. GI: Soft, normoactive bowel sounds, no rebound tenderness. No mass or organomegaly noted. No CVA tenderness. MSK: Both upper and lower extremities appear to be normal. SKIN: No rash or other lesions appreciated. NEURO: Alert and oriented x3. Able to communicate in full sentences. LABS - IMAGING - MEDICATIONS LABS/EKG: No results found for any visits on 07/05/24. IMAGING: No results found. INTERVENTIONS: MEDICAL DECISION MAKING Patient seen and assessed. Presented to Urgent Care for worker's comp evaluation for his respiratory symptoms. I do agree with him that the timing correlates with potential work related chemical exposure. To options discussed with him. The 1st option is to be treated a minimize his symptoms and recommend using mask while at work which he stated that that would not be feasible as it is very humid to use a mask. He has tried but unable to do so. The other option is to look for an job elsewhere. Symptomatically recommend doing steam baths and we will start him on albuterol inhalers as well as cetirizine daily. Highly recommend using mask while at work. Per request refer to pulmonology. If despite above and symptoms worsen, see your provider or come back for re- evaluation here or the ER. Patient was understanding of above assessment and plan and left the clinic in stable condition. ASSESSMENT & PLAN DIAGNOSIS: ICD-10-CM 1. Exposure to chemical inhalation Z77.098 Lung Health/Pulmonary Consult-Adult 2. Acute bronchospasm J98.01 3. Encounter related to worker's compensation claim Z02.6 Orders Placed This Encounter Medications cetirizine (ZYRTEC) 10 MG tablet Sig: Take 1 Tablet (10 mg) by mouth daily. Dispense: 30 Tablet Refill: 0 ALBUterol sulfate HFA 108 (90 Base) MCG/ACT inhaler Sig: Inhale 2 Puffs 4 times a day. Dispense: 8 g Refill: 0 Pharmacy may substitute albuterol HFA products based on insurance. DISPOSITION: Discharge Home Jean Marie Javed M.D. [facility] documented in this encounter Nursing Notes * Neftali Santiago, RN - 07/05/2024 5:40 PM CDT Pt c/o dry metallic taste in mouth, wheezing, fatigue, red eyes and headaches for 1 week . 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 [facility] [address] [place] [address] Dioni Gamble, PAMaryellen [address] [place] [address] Scheduled Referrals Name Type Priority Associated Diagnoses Orde r Schedule Lung Health/Pulmonary Consult-Adult Referral Routine Exposure to chemical inhalation Ordered: 07/05/2024 documented as of this encounter Visit Diagnoses Diagnosis Exposure to chemical inhalation Acute bronchospasm Encounter related to worker's compensation claim documented in this encounter Care Teams Proc Tech Relationship Specialty Start Date End Date No Primary/Referring, Phy PCP - General 11/25/22 4 documented as of this encounter
--- OUTSIDE RECORDS SUMMARY | 2024-07-14 13:46 | XMS_ITS | Encounter Summary ---
Author Organization [facility] Address [address] [place] [address] Care Team Providers Care Community Relations Officer Name Role Phone Osorio Dunn PA-C Primary Care Provider [phone] Encounter Details Date Type Department Care Team (Late st Contact Info) Description 07/11/2024 1:50 PM CDT Lab Visit [facility] [address] [place] [address] Hematuria, unspecified type; Fatigue, unspecified type Social History Tobacco Use Types Packs/Day Years Used Date Smoking Tobacco: Former Cigarettes Smokeless Tobacco: Never Alcohol Use Standard Drinks/Week Comments Not Currently 0 (1 standard drink = 0.6 oz pur e alcohol) PHQ-2 Answer Date Recorded PHQ-2 Score 4 07/11/2024 Sex and Gender Information Value Date Recorded Sex Assigned at Not on file Gender Identity Not on file Sexual Orientation Not on file documented as of this encounter Plan of Treatment Upcoming Encounters Date Type Department Care Team (Late st Contact Info) Description 07/21/2024 9:30 AM CDT Appointment [facility] [address] [place] [address] [address] [place], [place] [address] Dioni Gamble PA-C [address] [place] [phone] documented as of this encounter Procedures Procedure Name Priority Date/Time Associated Diagnosis Comments URINALYSIS ROUTINE, MICRO/CULTURE IF POS Routine 07/11/2024 11:47 AM CDT Hematuria, unspecified type UA MICRO Routine 07/11/2024 11:47 AM CDT Hematuria, unspecified type VITAMIN D 25-HYDROXY, TOTAL Routine 07/11/2024 11:44 AM CDT Fatigue, unspecified type COMPREHENSIVE METABOLIC PANEL Routine 07/11/2024 11:44 AM CDT Fatigue, unspecified type COMPLETE BLOOD COUNT-NO DIFF Routine 07/11/2024 11:44 AM CDT Fatigue, unspecified type TRANSFERRIN Routine 07/11/2024 11:44 AM CDT Fatigue, unspecified type FERRITIN Routine 07/11/2024 11:44 AM CDT Fatigue, unspecified type VITAMIN B12 ONLY Routine 07/11/2024 11:4 4 AM CDT Fatigue, unspecified type documented in this encounter Results * (ABNORMAL) Urine Microscopic Evaluation: Clean Catch (07/11/2024 11:47 AM CDT) Red Blood Cells 4-7(A) 0 - 3 /HPF 07/11/2024 12:06 PM [facility] White Blood Cells 0-5 0 - 5 /HPF 07/11/2024 12:[address] [facility] Bacteria Occasional(A) None Seen /HPF 07/11/2024 12:06 PM [facility] Squamous Epithelial Cells Occasional None Seen, Occasiona l, Few /HPF 07/11/2024 12:[address] [facility] Mucus Present(A) None Seen /HPF 07/11/2024 12:[address] [facility] Urine URINE SPECIMEN COLLECTION, CLEAN CATCH / Unknown Non-blood Collection / Unknown 07/11/2024 11:47 AM CDT 07/11/2024 11:47 AM CDT Osorio Dunn PA-C LAB_1 [facility] [address] [place] [address], [facility] * (ABNORMAL) Urinalysis Routine, Micro/Culture if Pos: Clean Catch (07/11/2024 11:47 AM CDT) Urine Culture Comment Urinalysis results do not meet criteria for urine culture reflex. 07/11/2024 12:[address] [facility] Urine Color Straw 07/11/2024 12:[address] [facility] Urine Clarity Clear Clear 07/11/2024 12:[address] [facility] Specific [place], Urine 1.020 1.005 - 1.030 07/11/2024 12:[address] [facility] PH Urine 6.5 5.0 - 8.0 07/11/2024 12:[address] [facility] Protein, Urine Qual (mg/dL) Negative Neg/Trace 07/11/2024 12:[address] [facility] Glucose Urine Qual (mg/dL) Negative Negative 07/11/2024 12:[address] [facility] Ketones, Urine (mg/dL) Negative Negative 07/11/2024 12:[address] [facility] Urobilinogen, Urine (EU/dL) 0.2 <2.0 07/11/2024 12:[address] [facility] Bilirubin Urine Negative Negative 07/11/2024 12:[address] [facility] Blood, Urine Small(A) Neg/Trace 07/11/2024 12:[address] [facility] Nitrite Urine Negative Negative 07/11/2024 12:[address] [facility] Leukocyte Est. Negative Negative 07/11/2024 12:[address] [facility] Urine Source Clean Catch 07/11/2024 12:[address] [facility] Urine URINE SPECIMEN COLLECTION, CLEAN CATCH / Unknown Non-blood Collection / Unknown 07/11/2024 11:47 AM CDT 07/11/2024 11:47 AM CDT Osorio Dunn PA-C LAB_1 [facility] [address] [place] [address] * (ABNORMAL) Vitamin D 25-Hydroxy, Total (07/11/2024 11:44 AM CDT) Vitamin D, 25-OH, Total 26(L) 30 - 80 ng/mL 07/11/2024 5:44 PM CDT [facility] Blood Venipuncture / Unknown 07/11/2024 11:44 AM CDT 07/11/2024 11:44 AM CDT Narrative [facility] - 07/11/2024 5:44 PM CDT Expected values Deficiency: <20 ng/mL Insufficiency: 20-29 ng/mL Optimum: 30-80 ng/mL Possible toxicity: >80 ng/mL Osorio Dunn PA-C LAB_1 Performing Organization Address [facility] Phone Number [facility] [address] * Vitamin B12 Only (07/11/2024 11:44 AM CDT) Vitamin B12 423 213 - 816 pg/mL 07/11/2024 5:43 PM CDT [facility] Blood Venipuncture / Unknown 07/11/2024 11:44 AM CDT 07/11/2024 11:44 AM CDT Osorio Dunn PA-C LAB_1 Performing Organization Address [facility] Phone Number [facility] [address] * Transferrin (07/11/2024 11:44 AM CDT) Transferrin 247 174 - 364 mg/dL 07/11/2024 4:56 PM CDT [facility] Blood Venipuncture / Unknown 07/11/2024 11:44 AM CDT 07/11/2024 11:44 AM CDT Osorio Dunn PA-C LAB_1 Performing Organization Address [facility] Co de Phone Number [facility] [address] * Ferritin (07/11/2024 11:44 AM CDT) Pathologist [facility] Ferritin 268 22 - 275 ng/mL 07/11/2024 5:36 PM CDT [facility] Blood Venipuncture / Unknown 07/11/2024 11:44 AM CDT 07/11/2024 11:44 AM CDT Osorio Dunn PA-C LAB_1 [facility] [address] * (ABNORMAL) Complete Blood Count-No Diff (07/11/2024 11:44 AM CDT) Pathologist [facility] WBC 5.9 3.5 - 10.5 x10(9)/L 07/11/2024 11:[address] [facility] RBC 4.70 4.32 - 5.72 x10(12)/L 07/11/2024 11:[address] [facility] Hemoglobin 14.8 13.5 - 17.5 g/dL 07/11/2024 11:[address] [facility] HCT 41.7 38.8 - 50.0 % 07/11/2024 11:[address] [facility] MCV 88.7 80.0 - 100.0 fL 07/11/2024 11:[address] [facility] MCH 31.5 27.6 - 33.3 pg 07/11/2024 11:[address] [facility] MCHC 35.5(H) 31.5 - 35.2 g/dL 07/11/2024 11:[address] [facility] RDW 13.2 11.9 - 15.5 % 07/11/2024 11:[address] [facility] Platelets 263 150 - 450 x10(9)/L 07/11/2024 11:[address] [facility] Automated NRBC 0 <=0 /100 WBC 07/11/2024 11:[address] [facility] Blood Venipuncture / Unknown 07/11/2024 11:44 AM CDT 07/11/2024 11:44 AM CDT Osorio Dunn PA-C LAB_1 [facility] [address] [place] [address] * Comprehensive Metabolic Panel (07/11/2024 11:44 AM CDT) Pathologist [facility] Sodium 140 136 - 145 mmol/L 07/11/2024 3:[address] [facility] Potassium 4.0 3.5 - 5.1 mmol/L 07/11/2024 3:[address] [facility] Chloride 106 98 - 109 mmol/L 07/11/2024 3:[address] [facility] CO2 24 20 - 29 mmol/L 07/11/2024 3:[address] [facility] Anion Gap 10 6 - 16 mmol/L 07/11/2024 3:[address] [facility] Calcium 9.5 8.4 - 10.4 mg/dL 07/11/2024 3:[address] [facility] BUN 15 7 - 26 mg/dL 07/11/2024 3:[address] [facility] Creatinine 0.80 0.73 - 1.18 mg/dL 07/11/2024 3:[address] [facility] Alkaline Phosphatase 74 40 - 150 U/L 07/11/2024 3:[address] [facility] AST (SGOT) 22 10 - 40 U/L 07/11/2024 3:[address] [facility] ALT (SGPT) 22 <=55 U/L 07/11/2024 3:[address] [facility] Bilirubin, Total 0.4 0.2 - 1.2 mg/dL 07/11/2024 3:[address] [facility] Protein, Total 7.5 6.4 - 8.3 g/dL 07/11/2024 3:[address] [facility] Albumin 4.0 3.5 - 5.0 g/dL 07/11/2024 3:[address] [facility] Glucose 98 70 - 100 mg/dL 07/11/2024 3:39 PM [facility] Comment:The given reference range is for the fasting state. Non-fasting reference range for glucose is 70 - 180 mg/dL. GFR, Estimated >60 >60 mL/min/1.7 3m2 07/11/2024 3:39 PM CDT [facility] Hours Fasting 4.0 8 - 12 Hours 07/11/2024 3:39 PM [facility] Blood Venipuncture / Unknown 07/11/2024 11:44 AM CDT 07/11/2024 11:44 AM CDT Osorio Dunn PA-C LAB_1 [facility] [address] [place] [address] documented in this encounter Visit Diagnoses Diagnosis Hematuria, unspecified type Fatigue, unspecified type documented in this encounter Care Teams Community Relations Officer Relationship Specialty Start Date End Date Osorio Dunn PA-C [address] [place] [address] PCP - General Physician Engine Builder 07/11/24 documented as of this encounter
--- OUTSIDE RECORDS SUMMARY | 2024-07-14 13:46 | XMS_ITS | Encounter Summary ---
Author Organization [facility] Address [address] [place] [address] Care Team Providers Care Healthcare Liaison Name Role Phone Osorio Garcia PA-C Primary Care Provider [phone] Reason for Visit * Reason Comments Plan of Care Encounter Details Date Type Department Care Team (Late st Contact Info) Description 07/11/2024 Telephone [facility] [address] [place] [address] Osorio Garcia PA-C [address] [place] [address] Plan of Care Social History Tobacco Use Types Packs/Day Years [...] as of this encounter Nursing Notes * Osorio Garcia PA-C - 07/11/2024 11:31 AM CDT Called and spoke with the patient regarding not taking prednisone dose as we discussed at his visitand instead awaiting further treatment until after his CT scan has resulted. Osorio Garcia PA-C documented in this encounter Plan of Treatment Upcoming Encounters Date Type Department Care Team (Late st Contact Info) Description 07/21/2024 9:30 AM CDT Appointment [facility] [address], [address] [place], [place] [address] Dioni Gamble PA-C [address] [place] [address] documented as of this encounter Visit Diagnoses Not on filedocumented in this encounter Care Teams Healthcare Liaison Relationship Specialty Start Date End Date Osorio Garcia PA-C [address] [place] [phone] PCP - General Physician Manager Investment 07/11/24 documented as of this encounter
--- OUTSIDE RECORDS SUMMARY | 2024-07-14 13:46 | XMS_ITS | Clinical Summary ---
Author Organization [facility] Address [place], [place] [address] Care Team Providers Care Supervisor Boat Outfitting Name Role Phone Clinic, No Pcp Or Primary Care Provider Unavaila ble Allergies Active Allergy Reactions Criticality Noted Date Comments Gabapentin GI Upset 01/29/2023 Methocarbamol GI Upset 06/16/2023 Medications Medication Sig Dispensed Refills Start Date End Date Status olopatadine (PATANOL) 0.1 % ophthalmic solutionIndications:Se asonal allergies Place 1 Drop into both eyes two times daily. 5 mL 06/22/2024 Active ondansetron (ZOFRAN ODT) 4 mg disintegrating tabletIndications:Naus ea Place 1 Tablet (4 mg) on the tongue one time for 1 dose. 1 Tablet 06/22/2024 06/22/2024 predniSONE (DELTASONE) 20 mg tabletIndications:Thro at irritation,Seasonal allergies Take 1 Tablet (20 mg) by mouth once daily for 5 days. 5 Tablet 06/22/2024 06/27/2024 Active Problems No known active problems Encounters Date Type Department Care Team Description 06/22/2024 9:00 AM CDT Office Visit [facility] [place] [address] [place] [address] Mario Lyons NP Tired 06/22/2024 Travel from Last 3 Months Immunizations Name Administration Dates Next Due Dtap Unspecified Formulation 11/14/2019 Hepatitis B (Adult) 08/04/2015 Td (Age >=7 Years) 10/16/1997 Tdap, Unspecified 11/14/2019 Social History Tobacco Use Types Packs/Day Years Used Date Smoking Tobacco: Never Smokeless Tobacco: Never Alcohol Use Standard Drinks/Week Comments Not Currently 0 (1 standard drink = 0.6 oz pur e alcohol) PHQ-2 Answer Date Recorded PHQ-2 TOTAL SCORE 0 04/23/2022 Social Connections Answer Date Recorded Frequency of Communication with Friends and Fami ly 0 12/21/2023 Financial Resource Strain Answer Date R ecorded Difficulty of Paying Living Expenses 3 12/21/2023 Difficulty of Paying Living Expenses Not on file 12/21/2023 Food Insecurity Answer Date Recorded Worried About Running Out of Food in the Last Ye ar 1 12/21/2023 Transportation Needs Answer Date Record ed Lack of Transportation (Medical) 1 12/21/2023 Housing Stability Answer Date Recorded Unable to Pay for Housing in the Last Year 1 12/21/2023 Sex and Gender Information Value Date Recorded Sex Assigned at Not on file Gender Identity Not on file Sexual Orientation Not on file Obstetrics History Last Filed Vital Signs Vital Sign Reading Time Taken Comments Blood Pressure 113/76 06/22/2024 9:33 AM CDT Pulse 71 06/22/2024 9:33 AM CDT Temperature 36.4 ??C (97.5 ??F) 06/22/2024 9:33 AM CD T Respiratory Rate 14 06/22/2024 9:33 AM CDT Oxygen Saturation 96% 06/22/2024 9:33 AM CDT Inhaled Oxygen Concentration - - Weight 78.9 kg (174 lb) 06/22/2024 9:33 AM CDT Height 162.6 cm (5' 4) 06/22/2024 9:33 AM CDT Body Mass Index 29.87 06/22/2024 9:33 AM CDT Plan of Treatment Health Maintenance Due Date Last Done Comments Colonoscopy through age 75 2023 Lipids for age 45-75 2023 Depression screening for age 12+ 04/23/2023 04/23/2022 COVID-19 vaccine series ( season) 2024 Influenza for age 9-49 06/19/2024 BMI (ht and wt on same day) for age 18+ 06/22/2025 06/22/2024, 09/15/2022, 02/20/2022, Additional history exists Tetanus booster 11/14/2029 11/14/2019, 10/16/1997 Tdap Completed 11/14/2019 Hepatitis C screening for age 18-79 Completed 09/21/2020 HIV for age 15-65 Completed 04/23/2022, , 09/21/2020 Pneumococcal series for age 6-64 Aged Out No longer eligible based on patient's age to complete this topic Procedures Procedure Name Priority Date/Time Associated Diagnosis Comments ISTAT CHEM 8 STAT 06/22/2024 10:25 AM CDT Fatigue, unspecified type Nausea Diarrhea, unspecified type CBC WITH AUTO DIFFERENTIAL STAT 06/22/2024 10:20 AM CDT Fatigue, unspecified type Nausea Diarrhea, unspecified type TSH WITH REFLEX STAT 06/22/2024 10:20 AM CDT Fatigue, unspecified type HETEROPHILE STAT 06/22/2024 10:20 AM CDT Fatigue, unspecified type Throat irritation Nausea LIPASE STAT 06/22/2024 10:20 AM CDT Fatigue, unspecified type Nausea Diarrhea, unspecified type HEPATIC FUNCTION PANEL STAT 06/22/2024 10:20 AM CDT Fatigue, unspecified type Nausea Diarrhea, unspecified type CBC WITH AUTO DIFFERENTIAL STAT 06/22/2024 10:20 AM CDT Fatigue, unspecified type Nausea Diarrhea, unspecified type URINE CULTURE Add On 06/22/2024 10:11 AM CDT Fatigue, unspecified type URINALYSIS MICROSCOPIC STAT 06/22/2024 10:11 AM CDT Fatigue, unspecified type Nausea Diarrhea, unspecified type UA W/ SEDIMENT EXAM REFLEXED PER CRITERIA STAT 06/22/2024 10:11 AM CDT Fatigue, unspecified type Nausea Diarrhea, unspecified type STREP A PCR STAT 06/22/2024 10:05 AM CDT Throat irritation Nausea Diarrhea, unspecified type COVID-19 MOLECULAR Routine 06/22/2024 10 :05 AM CDT Fatigue, unspecified type Throat irritation Nausea Diarrhea, unspecified type THROAT RAPID STREP A WITH REFLEX STAT 06/22/2024 10:05 AM CDT Throat irritation Nausea Diarrhea, unspecified type ANTI HIV 1/2 Routine 04/23/2022 1:04 PM CDT Possible exposure to STD ANTI HCV Routine 09/21/2020 12:49 PM RN LACTATION CONSULTANT Screen for STD (sexually transmitted disease) from Last 3 Months or Most Recently Relevant to Health Maintenance Results * ISTAT CHEM 8 (06/22/2024 10:25 AM CDT) [facility] SODIUM, POCT 139 135 - 145 mmol/L 06/22/2024 10:[address] [facility] POTASSIUM, POCT 4.4 3.5 - 5.0 mmol/L 06/22/2024 10:[address] [facility] CHLORIDE, POCT 103 98 - 107 mmol/L 06/22/2024 10:[address] [facility] CO2,TOTAL, POCT 27 21 - 31 mmol/L 06/22/2024 10:[address] [facility] ANION GAP, POCT 14 5 - 18 10:[address] [facility] GLUCOSE, POCT 97 70 - 99 mg/dL 06/22/2024 10:[address] [facility] IONIZED CALCIUM, POCT 1.24 1.15 - 1.27 mmol/L 06/22/2024 10:[address] [facility] BUN, POCT 18 8 - 25 mg/dL 06/22/2024 10:[address] [facility] CREATININE, POCT 1.00 0.57 - 1.11 mg/dL 06/22/2024 10:[address] [facility] BUN/CREAT RATIO, POCT 18 10 - 20 06/22/2024 10:[address] [facility] eGFR >90 >90 mL/min/1.7 3m2 06/22/2024 10:[address] [facility] Comment:As of 2021, eG FR is calculated by the CKD-EPI creatinine equation without race adjustment. eGFR can be influenced by muscle mass, exercise, and diet. The reported eGFR is an estimation only and is only applicable if the renal function is stable. Blood BLOOD SPECIMEN / Unknown 06/22/2024 10:25 AM CDT 06/22/2024 10:30 AM CDT Mario Lyons NP CHEMISTRY [facility] [address] [place] [address], [place] * (ABNORMAL) CBC WITH AUTO DIFFERENTIAL (06/22/2024 10:20 AM CDT) WHITE BLOOD COUNT 7.0 4.5 - 11.0 thou/cu mm 06/22/2024 10:[address] [facility] RED BLOOD COUNT 4.73 4.30 - 5.90 mil/cu mm 06/22/2024 10:[address] [facility] HEMOGLOBIN 15.1 13.5 - 17.5 g/dL 06/22/2024 10:[address] [facility] HEMATOCRIT 41.7 37.0 - 53.0 % 06/22/2024 10:[address] [facility] MCV 88 80 - 100 fL 06/22/2024 10:[address] [facility] MCH 31.9 26.0 - 34.0 pg 06/22/2024 10:[address] [facility] MCHC 36.2(H) 32.0 - 36.0 g/dL 06/22/2024 10:[address] [facility] RDW 13.2 11.5 - 15.5 % 06/22/2024 10:[address] [facility] PLATELET COUNT 282 140 - 440 thou/cu mm 06/22/2024 10:[address] [facility] MPV 9.5 6.5 - 11.0 fL 06/22/2024 10:[address] [facility] NRBC 0.0 % 06/22/2024 10:[address] [facility] ABS NRBC 0.0 thou /cu mm 06/22/2024 10:[address] [facility] % NEUT 49.6 % 06/22/2024 10:[address] [facility] % LYMPH 37.5 % 06/22/2024 10:[address] [facility] % MONO 9.1 % 06/22/2024 10:[address] [facility] % EOS 2.8 % 06/22/2024 10:[address] [facility] % BASO 0.9 % 06/22/2024 10:[address] [facility] % IMMATURE GRAN (METAS,MYELOS,VT OS) 0.1 % 06/22/2024 10:[address] [facility] ABSOLUTE NEUTROPHILS 3.5 1.7 - 7.0 thou/cu mm 06/22/2024 10:[address] [facility] ABSOLUTE LYMPHOCYTES 2.6 0.9 - 2.9 thou/cu mm 06/22/2024 10:[address] [facility] ABSOLUTE MONOCYTES 0.6 <0.9 thou/cu mm 06/22/2024 10:[address] [facility] ABSOLUTE EOSINOPHILS 0.2 <0.5 thou/cu mm 06/22/2024 10:[address] [facility] ABSOLUTE BASOPHILS 0.1 <0.3 thou/cu mm 06/22/2024 10:[address] [facility] ABSOLUTE IMMATURE GRANULOCYTES(MET ,MYELOS,PROS) 0.0 <0.3 thou/cu mm 06/22/2024 10:[address] [facility] Blood BLOOD SPECIMEN / Unknown Venipuncture / Unknown 06/22/2024 10:20 AM CDT 06/22/2024 10:20 AM CDT Mario Lyons NP HEMATOLOGY [facility] [address] [place] [address], [place] * TSH WITH REFLEX (06/22/2024 10:20 AM CDT) TSH 2.65 0.27 - 4.20 uIU/mL 06/22/2024 10:38 PM CDT [facility] Blood BLOOD SPECIMEN / Unknown Venipuncture / Unknown 06/22/2024 10:20 AM CDT 06/22/2024 10:20 AM CDT Narrative [facility] - 06/22/2024 10:38 PM CDT In Adults, TSH values between 5.00 and 10.00 uIU/ml do not necessarily indicate the presence of Hypothyroidism. Correlation with clinical findings such as presence of goiter and/or Thyroperoxidase (TPO) Antibody may be helpful. For more information please refer to DANILO 2004; 291: 228-238. Mario Lyons NP CHEMISTRY Performing Organization Address City/[facility]/ZIP Co de Phone Number [facility] [address] [place] [address], [place] * HETEROPHILE (06/22/2024 10:20 AM CDT) HETEROPHILE Negative Negative 06/22/2024 10:[address] [facility] Blood BLOOD SPECIMEN / Unknown Venipuncture / Unknown 06/22/2024 10:20 AM CDT 06/22/2024 10:20 AM CDT Mario Lyons NP HEMATOLOGY Performing Organization Address City/[facility]/ZIP Co de Phone Number [facility] [address] [place] [address], [place] * LIPASE (06/22/2024 10:20 AM CDT) LIPASE 44.7 13.0 - 60.0 IU/L 06/22/2024 10:38 PM CDT [facility] Blood BLOOD SPECIMEN / Unknown Venipuncture / Unknown 06/22/2024 10:20 AM CDT 06/22/2024 10:20 AM CDT Mario Lyons NP CHEMISTRY [facility] [address] [place] [address], * LIVER PANEL (HEPATIC FUNCTION PANEL) (06/22/2024 10:20 AM CDT) ALBUMIN 4.5 4.0 - 4.9 g/dL 06/22/2024 10:38 PM CDT [facility] PROTEIN,TOTAL 7.6 6.0 - 8.0 g/dL 06/22/2024 10:38 PM CDT [facility] BILIRUBIN,TOTAL 0.4 0.0 - 1.2 mg/dL 06/22/2024 10:38 PM CDT [facility] BILIRUBIN,DIRECT 0.2 0.0 - 0.2 mg/dL 06/22/2024 10:38 PM CDT [facility] BILIRUBIN,INDIRE CT 0.2 0.2 - 0.8 mg/dL 06/22/2024 10:38 PM CDT [facility] ALK PHOSPHATASE 72 40 - 129 IU/L 06/22/2024 10:38 PM CDT [facility] ALT (SGPT) 22 10 - 50 IU/L 06/22/2024 10:38 PM CDT [facility] AST (SGOT) 28 10 - 50 IU/L 06/22/2024 10:38 PM CDT [facility] Blood BLOOD SPECIMEN / Unknown Venipuncture / Unknown 06/22/2024 10:20 AM CDT 06/22/2024 10:20 AM CDT Mario Lyons NP [facility] [address] [place] [address], [place] * (ABNORMAL) URINALYSIS MICROSCOPIC (06/22/2024 10:11 AM CDT) RBC 3-5(A) 0-2, None Seen /HPF 06/22/2024 10:[address] [facility] WBC 0-2 0-2, 3-5, None Seen /HPF 06/22/2024 10:[address] [facility] BACTERIA None Seen None Seen, Rare, Few Bacteria/H PF 06/22/2024 10:[address] [facility] EPITHELIAL CELLS Few None Seen, Few Epi/HPF 06/22/2024 10:[address] [facility] Urine URINE SPECIMEN / Unknown Non-Blood / Unknown 06/22/2024 10:11 AM CDT 06/22/2024 10:11 AM CDT Mario Lyons NP URINE Performing Organization Address [facility]/ZIP Co de Phone Number [facility] [address] [place] [address], [place] * URINE CULTURE (06/22/2024 10:11 AM CDT) CULTURE No growth (<1,000 CFU/mL) 06/24/2024 7:44 AM CDT [facility] Urine URINE SPECIMEN / Unknown Non-Blood / Unknown 06/22/2024 10:11 AM CDT 06/22/2024 10:11 AM CDT Mario Lyons NP MICROBIOLOGY [facility] [address] [place] [address], [place] * (ABNORMAL) UA W/ SEDIMENT EXAM REFLEXED PER CRITERIA (06/22/2024 10:11 AM CDT) COLOR Yellow Yellow Color 06/22/2024 10:[address] [facility] CLARITY Clear Clear Clarity 06/22/2024 10:[address] [facility] SPECIFIC GRAVITY,URINE 1.015 1.010, 1.015, 1.020, 1.025 06/22/2024 10:[address] [facility] PH,URINE 6.5 6.0, 7.0, 8.0, 5.5, 6.5, 7.5, 8.5 06/22/2024 10:[address] [facility] UROBILINOGEN,Q UALITATIVE Normal Normal EU/dl 06/22/2024 10:[address] [facility] PROTEIN, URINE Negative Negative mg/dL 06/22/2024 10:[address] [facility] GLUCOSE, URINE Negative Negative mg/dL 06/22/2024 10:[address] [facility] KETONES,URINE Negative Negative mg/dL 06/22/2024 10:[address] [facility] BILIRUBIN,URIN E Negative Negative 06/22/2024 10:[address] [facility] OCCULT BLOOD,URINE Trace(A) Negative 06/22/2024 10:[address] [facility] NITRITE Negative Negative 06/22/2024 10:[address] [facility] LEUKOCYTE ESTERASE Negative Negative 06/22/2024 10:[address] [facility] Urine URINE SPECIMEN / Unknown Non-Blood / Unknown 06/22/2024 10:11 AM CDT 06/22/2024 10:11 AM CDT Mario Lyons NP URINE [facility] [address] [place] [address], * COVID-19 MOLECULAR (06/22/2024 10:05 AM CDT) COVID 19 [facility] MOLECULAR Negative Negative 06/23/2024 1:48 AM CDT [facility] TESTING LABORATORY [facility] 06/23/2024 1:48 AM CDT [facility] Comment:Specimen submitted t o [facility] for testing. Other OROPHARYNGEAL / Unknown Non-Blood / Unknown 06/22/2024 10:05 AM CDT 06/22/2024 10:14 AM CDT Narrative [facility] - 06/23/2024 1:48 AM CDT All PCR tests are subject to false negative result due to variability in viral load and collection technique. A negative result does not rule out a SARS-CoV-2 infection. Clinical correlation required. Mario Lyons NP MICROBIOLOGY Performing Organization Address [facility]/ZIP Co de Phone Number [facility] [address] [place] [address], [place] * STREP A PCR (06/22/2024 10:05 AM CDT) GROUP A STREP Negative 06/22/2024 10:41 PM CDT [facility] Throat SPECIMEN FROM THROAT / Unknown Non-Blood / Unknown 06/22/2024 10:05 AM CDT 06/22/2024 10:23 AM CDT [facility]CRO[facility] Performing Organization Address [facility] Co de Phone Number [facility] [address] [place] [address], [place] * THROAT RAPID STREP A WITH REFLEX (06/22/2024 10:05 AM CDT) STREP A ANTIGEN Negative 06/22/2024 10:[address] [facility] Comment:PCR to follow. Throat SPECIMEN FROM THROAT / Unknown Non-Blood / Unknown 06/22/2024 10:05 AM CDT 06/22/2024 10:14 AM CDT [facility] Performing Organization Address [facility] Co de Phone Number [facility] [phone] [place], [place] [id number], * ANTI HIV 1/2 (04/23/2022 1:04 PM CDT) HIV-1/HIV-2 ANTIBODY Non-Reacti ve Non-Reacti ve 04/24/2022 6:25 AM CDT [facility] Comment:HIV-1 p24 and HIV-1/ HIV-2 Ab not detected. Blood BLOOD SPECIMEN / Unknown Venipuncture / Unknown 04/23/2022 1:04 PM CDT 04/23/2022 1:04 PM CDT Bola GRACIA SEND OUTS [facility] [address] [place] [address], * ANTI HCV (09/21/2020 12:49 PM RN LACTATION CONSULTANT) HEPATITIS C ANTIBODY Non-React edgardo Non-React edgardo 09/21/2020 8:05 PM RN LACTATION CONSULTANT [facility] Comment:Antibodies to HCV no t detected; does not exclude the possibility of exposure to HCV. Blood BLOOD SPECIMEN / Unknown Venipuncture / Unknown 09/21/2020 12:49 PM RN LACTATION CONSULTANT 09/21/2020 12:50 PM RN LACTATION CONSULTANT Barry Cortez MD SEND OUTS [facility] [address] [place] [address], from Last 3 Months or Most Recently Relevant to Health Maintenance Care Teams Supervisor Boat Outfitting Relationship Specialty Start Date End Date Clinic, No Pcp Or . PCP - General 03/31/19
--- OUTSIDE RECORDS SUMMARY | 2024-07-14 13:46 | XMS_ITS | Clinical Summary ---
Author Organization [facility] Address [address] [place] [address] Care Team Providers Care Baffle Installer Name Role Phone [facility], [facility] Tai Primary Care Provider Allergies No known active allergies Medications Medication Sig Dispensed Refills Start Date End Date Status albuterol (PROAIR HFA/PROVENTIL HFA/VENTOLIN HFA) 108 (90 Base) MCG/ACT inhaler Inhale 6 puffs into the lungs every 6 hours as needed for shortness of breath / dyspnea or wheezing 1 Inhaler 02/22/2020 Active dexamethasone (DECADRON) 6 MG tabletIndications:Pne umonia due to 2019 novel coronavirus Take 1 tablet (6 mg) by mouth every morning for 5 doses 5 tablet 01/29/2021 Active rivaroxaban ANTICOAGULANT (XARELTO) 10 MG TABS tabletIndications:Pne umonia due to 2018 novel coronavirus Take 1 tablet (10 mg) by mouth daily (with dinner) 30 tablet 01/28/2021 Active Active Problems Problem Noted Date Diagnosed Date Hypoxia 01/24/2021 Near syncope 01/24/2021 Pneumonia due to 2019 novel coronavirus 01/25/20 21 CARDIOVASCULAR SCREENING; LDL GOAL LESS THAN 160 02/06/2014 Hypoesthesia 02/06/2014 Allergic rhinitis 02/06/2014 Immunizations Name Administration Dates Next Due Influenza (IIV3) PF 07/17/2010 TDAP (Adacel,Boostrix) 09/13/2010 Family History Medical History Relation Comments Neurologic Disorder Father Alzheimer Disease Maternal Grandmother Alcohol/Drug Paternal Grandfather Arthritis Sister 1 Relation Status Comments Brother 1 Alive Brother 2 Alive Father Alive Maternal Grandfather Maternal Grandmother Mother Alive Paternal Grandfather Paternal Grandmother (Age 91) Sister 1 Alive Sister 2 Alive Son Alive Social History Tobacco Use Types Packs/Day Years Used Date Smoking Tobacco: Former Smokeless Tobacco: Never Alcohol Use Standard Drinks/Week Comments Yes 0 (1 standard drink = 0.6 oz pur e alcohol) 1-2 beers a month Adolescent Education Answer Date Record ed Getting School Help Needed Not on file 07/27 Sex and Gender Information Value Date Recorded Sex Assigned at Not on file Gender Identity Not on file Sexual Orientation Not on file Last Filed Vital Signs Vital Sign Reading Time Taken Comments Blood Pressure 100/66 01/28/2021 4:04 PM CDT Pulse 96 01/28/2021 4:04 PM CDT Temperature 36.6 ??C (97.9 ??F) 01/28/2021 4:04 PM CD T Respiratory Rate 18 01/28/2021 4:04 PM CDT Oxygen Saturation 94% 01/28/2021 12:52 PM CDT Inhaled Oxygen Concentration - - Weight 77.7 kg (171 lb 4.8 oz) 01/24/2021 11:09 PM CDT Height 162.6 cm (5' 4) 01/24/2021 11:09 PM CDT Body Mass Index 29.4 01/24/2021 11:09 PM CDT Plan of Treatment Not on file Advance Directives For more information, please contact: [phone] * Full Code (Latest Code Status on File) Date Activated Date Inactivated Comments 01/24/2021 11:07 PM 01/28/2021 8:21 PM All basic an d advanced life-sustaining interventions are performed as appropriate Question Answer Comments Code status determined by: Other (please rhonda hedirck) Care Teams Baffle Installer Relationship Specialty Start Date End Date [facility], [place] [address] PCP - General 06/30/16
--- OUTSIDE RECORDS SUMMARY | 2024-07-14 13:46 | XMS_ITS | Referral Summary ---
Author Organization [place] Address [address] [place] [address] Care Team Providers Care Plate Glass Grinder Name Role Phone [facility], [facility] Tai Primary Care Provider Allergies No known [...] Influenza (IIV3) PF 07/17/2010 TDAP (Adacel,Boostrix) 09/13/2010 Social History Tobacco Use Types Packs/Day Years [...] Advance Directives For more information, please contact: [phone] * Full Code (Latest Code Status on File) Date Activated Date Inactivated Comments 01/24/2021 11:07 PM 01/28/2021 8:21 PM All basic an d advanced life-sustaining interventions are performed as appropriate Question Answer Comments Code status determined by: Other (please rhonda hedrick) Care Teams Plate Glass Grinder Relationship Specialty Start Date End Date [facility] [address] [place] [address] PCP - General 06/30/16
--- OUTSIDE RECORDS SUMMARY | 2024-07-14 13:46 | XMS_ITS | Encounter Summary ---
Author Organization [facility] Address [address] [place] [address] Care Team Providers Care Circular Distributor Name Role Phone Osorio Garcia PA-C Primary Care Provider [phone] Reason for Referral * Consult/Transfer Care (Routine) - New Request Specialty Diagnoses / Procedures Referred By Madelyn t Referred To Contact Diagnoses Hematuria, unspecified type Osorio Garcia PA-C [address] [place] [address] Referral ID Status Reason Start Date Expiration Date V isits Requested Visits Authorized [id number] New Request 07/13/2024 10/12/2025 1 1 Scheduling Instructions Your clinician has recommended an appointment with [facility]. You can quickly make your appointment online at [employer]/schedule. You can also call [phone] for help scheduling your appointment. We suggest you call your health insurance company about your coverage and benefits for this appointment. Question Answer Appointment Urgency? Non-Urgent Reason for visit? Hematuria * Procedure/Equipment (Routine) - Incomplete Specialty Diagnoses / Procedures Referred By Contac t Referred To Contact Diagnoses Hematuria, unspecified type Procedures CT Abd Pelvis W/WO IV Cont IVP Hematuria Osroio Garcia PA-C [address] [place] [phone] Referral ID Status Reason Start Date Expiration Date V isits Requested Visits Authorized [id number] Incomplete 07/13/2024 10/12/2025 1 1 Reason for Visit * Reason Comments Plan of Care Encounter Details Date Type Department Care Team (Late st Contact Info) Description 07/13/2024 Telephone [facility] [address] [place] [address] Osorio Garcia PA-C [address] [place] [address] Plan of Care Social History Tobacco [...] Nursing Notes * Osorio Garcia PA-C - 07/13/2024 3:41 PM CDT Please call the patient with the following message: Your blood work has resulted in its entirety. No identifiable cause of your fatigue outside of a mild deficiency in vitamin-D. I recommend you start taking a vitamin-D supplement 2000 units daily. This can be purchased [id number]. You do continue to have blood in your urine. Unclear as to thecause of this. Given that you have had repeat blood in your urine, I recommend a CT scan of your abdomen looking for a cause of the blood in the urine as well as seeing a urologist. Please call the Urology dept. at [phone] to schedule your appointment. More urgently I do suggest getting the CTscan of your lungs that was ordered at our visit. This will be important to do prior to occupational medicine visit to determine if there are changes in your lungs as a result of the exposure to inhaled chemicals that your job. You may call [phone] scan of your lungs and of your abdomen. If you have questions regarding treatment plan, feel free to reach out to me and we can discuss further. Osorio Garcia PA-C documented in this encounter Plan of Treatment Upcoming Encounters Date Type Department Care Team (Late st Contact Info) Description 07/21/2024 9:[address] [facility] [address] [place] [address] Dioni Gamble PA-C [address] [place] [address] Scheduled Orders Name Type Priority Associated Diagnoses Orde r Schedule CT Abd Pelvis W/WO IV Cont IVP Hematuria Imaging New Routine Hematuria, unspecified type Expected: 07/13/2024 (Approximate), Expires: 07/13/2025 Scheduled Referrals Name Type Priority Associated Diagnoses Orde r Schedule Urology Consult-Adults Referral Routine Hematuria, unspecified type Ordered: 07/13/2024 documented as of this encounter Visit Diagnoses Diagnosis Fatigue, unspecified type- Primary Hematuria, unspecified type documented in this encounter Care Teams Circular Distributor Relationship Specialty Start Date End Date Osorio Garcia PA-C [address] [place] [address] PCP - General Physician Rehanger 07/11/24 documented as of this encounter
--- OUTSIDE RECORDS SUMMARY | 2024-07-14 13:46 | XMS_ITS | Encounter Summary ---
Author Organization [facility] Address [address] [place] [address] Care Team Providers Care Human Resources Director Name Role Phone No Primary/Referring, Phy Primary Care Provider Unavailable Encounter Details Date Type Department Care Team (Late st Contact Info) Description 05/10/2024 1:10 PM CDT Lab Visit [facility] [address] [place] [address] Routine screening for STI (sexually transmitted infection) Social History Tobacco Use Types Packs/Day Years Used Date Smoking Tobacco: Never Sex and Gender Information Value Date Recorded Sex Assigned at Not on file Gender Identity Not on file Sexual Orientation Not on file documented as of this encounter Plan of Treatment Upcoming Encounters Date Type Department Care Team (Late st Contact Info) Description 07/21/2024 9:30 AM CDT Appointment [facility] [address] [place], [place] [address] Dioni Gamble PA-C [address] [place] [address] documented as of this encounter Procedures Procedure Name Priority Date/Time Associated Diagnosis Comments CHLAMYDIA & GC, URINE (14 YEARS AND [...] Routine screening for STI (sexually transmitted infection) documented in this encounter Results * Chlamydia & GC, Urine (05/10/2024 1:14 PM CDT) Pathologist [facility] Chlamydia Trachomatis STD Not Detected Not Detected 05/11/2024 12:07 AM CDT [facility] N. gonorrhoeae STD Not Detected Not Detected 05/11/2024 12:07 AM CDT [facility] Urine STD (Urine for STD) Non-blood Collection / Unknown 05/10/2024 1:14 PM CDT 05/10/2024 1:14 PM CDT Narrative [facility] - 05/11/2024 12:07 AM CDT Test performed by Telephone Quotation Clerk Mediated Amplification (TMA). Urine Volume submitted was greater than 30 ml. Excess collection volume may decrease test sensitivity. Recollection suggested if clinically indicated. Dennis [facility]_1 Performing Organization Address City/[facility]/ZIP Co de Phone Number [facility] [address] * Treponema Screen (05/10/2024 1:09 PM CDT) Pathologist [facility] Treponema Screen Interpretation Non Reactive Non Reactive 05/10/2024 6:30 PM CDT [facility] Blood Venipuncture / Unknown 05/10/2024 1:09 PM CDT 05/10/2024 1:09 PM CDT Dennis [facility] [address] * Hepatitis C Antibody, with Reflex (05/10/2024 1:09 PM CDT) Pathologist [facility] Hepatitis C Antibody Negative (Non Reactive) Negative (Non Reactive) 05/10/2024 8:55 PM CDT [facility] Comment:Antibodies to HCV no t detected. Does not exclude the possiblity of exposure to HCV. Blood Venipuncture / Unknown 05/10/2024 1:09 PM CDT 05/10/2024 1:09 PM CDT Dennis [facility]ORDON [facility] Performing Organization Address City/[facility] de Phone Number [facility] [address] * HIV 1/2 Ag/Ab 4th Generation (05/10/2024 1:09 PM CDT) Pathologist [facility] HIV 1/2 Antigen/Antib annetta (4th generation) Negative (Non Reactive) Negative (Non Reactive) 05/10/2024 8:55 PM CDT [facility] Comment:HIV-1 p24 Antigen an d HIV-1/HIV-2 Antibody not detected Blood Venipuncture / Unknown 05/10/2024 1:09 PM CDT 05/10/2024 1:09 PM CDT Dennis CORD[facility]_1 Performing Organization Address [facility] de Phone Number [facility] [address] documented in this encounter Visit Diagnoses Diagnosis Routine screening for STI (sexually transmitted infection) Screening examination for venereal disease documented in this encounter Care Teams Human Resources Director Relationship Specialty Start Date End Date No Primary/Referring, Phy PCP - General 11/25/22 4 documented as of this encounter
--- OUTSIDE RECORDS SUMMARY | 2024-07-14 13:46 | XMS_ITS | Encounter Summary ---
Author Organization [facility] Address [address] [place] [address] Care Team Providers Care Investment Banker Name Role Phone No Primary/Referring, Phy Primary Care Provider Unavailable Reason for Visit * Reason Comments Pharyngitis Encounter Details Date Type Department Care Team (Late st Contact Info) Description 05/10/2024 12:40 PM CDT Office Visit [place] [address] [facility] [address] [place] [address] Dennis Tsai MBBS [address] [place] [address] Pharyngitis, unspecified etiology; Routine screening for STI (sexually transmitted infection) Social History Tobacco Use Types Packs/Day Years Used Date Smoking Tobacco: Never Sex and Gender Information Value Date Recorded Sex Assigned at Not on file Gender Identity Not on file Sexual Orientation Not on file documented as of this encounter Last Filed Vital Signs Vital Sign Reading Time Taken Comments Blood Pressure 107/74 05/10/2024 12:45 PM CDT Pulse 104 05/10/2024 12:45 PM CDT Temperature 36.9 ??C (98.4 ??F) 05/10/2024 12:45 PM C DT Respiratory Rate 16 05/10/2024 12:45 PM CDT Oxygen Saturation 99% 05/10/2024 12:45 PM CDT Inhaled Oxygen Concentration - - Weight - - Height - - Body Mass Index - - documented in this encounter Patient Instructions * Patient Instructions* Dennis Tsai MBBS - 05/10/2024 12:40 PM CDT Images from the original note were not included. Exposure to Sexually Transmitted Infections: Care Instructions Overview Sexually transmitted infections (STIs) are infections spread by sexual contact. This includes genital akhs-pk-mcqe contact and vaginal, oral, and anal sex. If you're , you can also spread them to your baby before or during the . STIs are common. But they don't always cause symptoms. And if they are not treated, they can lead to health problems. Testing and treatment are important to help protect the health of you and your partner or partners. STIs caused by bacteria can go away with treatment. STIs caused by viruses can be treated to relieve symptoms, but treatment won't make them go away. Follow-up care is a michaels part of your treatment and safety. Be sure to make and go to all appointments, and call your doctor if you are having problems. It's also a good idea to know your test resultsand keep a list of the medicines you take. How can you care for yourself at home? Take medicines exactly as prescribed. If your doctor prescribed antibiotics, take them as directed. Don't stop taking them just because you feel better. You need to take the full course of antibiotics. Tell your sex partner or partners that they will need treatment. For certain STIs, your doctor may be able to prescribe treatment for any partners also. Don't have sexual contact while you have symptoms of an STI or are being treated for an STI. Don't douche. Douching changes the normal balance of bacteria in your vagina. It may increase the risk of spreading the infection to your uterus or other reproductive organs. How can you prevent sexually transmitted infections (STIs)? You can help prevent STIs if you wait to have sex with a new partner (or partners) until you've each been tested for STIs. It also helps if you use condoms and if you limit your sex partners to one person who has sex only with you. When should you call for help? Call 911 anytime you think you may need emergency care. For example, call if: ?? You have sudden, severe pain in your belly or pelvis. Call your doctor now or seek immediate medical care if: ?? You have new belly or pelvic pain. ?? You have a fever. ?? You have new or increased burning or pain with urination, or you cannot urinate. ?? You have pain, swelling, or tenderness in the scrotum. ?? You are and have any symptoms of an STI. Watch closely for changes in your health, and be sure to contact your doctor if: ?? You have unusual vaginal bleeding. ?? You have a discharge from the vagina, penis, or anus. ?? You have any new symptoms, such as sores, bumps, rashes, blisters, or warts in the genital or anal area. ?? You have itching, tingling, pain, or burning in the genital or anal area. ?? You think you may have been exposed to an STI. ?? You have a sore throat or sores in your mouth or on your tongue. Where can you learn more? 1. Go to https://www.[employer]/healthlibrary. 2. Enter M049 in the search box. Current as of: September 14, 2023 Content Version: 14.1 ?? [employer]. Care instructions adapted under license by your healthcare professional. If you have questions about a medical condition or this instruction, always ask your healthcare professional. [employer] disclaims any warranty or liability for your use of this information. * Attachments The following attachments cannot be sent through Care Everywhere. * Sore Throat (Pashto) documented in this encounter Progress Notes * Dennis Tsai MBBS - 05/10/2024 12:40 PM CDT Rooming Notes: Chriss Powell is a 44 y.o.male presents to the Urgent Care for Pharyngitis Symptoms began: 1 day(s) ago. Fever: absent. Other associated symptoms: fever, myalgias, sore throat, sweats, and painful swallowing . Any recent close contact with an individual with a known similar illness (including COVID): yes: work. Current medications: acetaminophen, Theraflu. Patient requests an excuse letter for work/school: No Chief complaint: Chief Complaint Patient presents with Pharyngitis Subjective: Chriss Powell is a 44 y.o.male who presents to the urgent care with symptoms noted above. He denies any known exposure to anybody with strep. Close contact did have a similar illness recently. He denies any nausea or vomiting. No abdominal pain. No chest pain or shortness breath. He denies any dysuria, frequency or urgency of urination. No skin rashes. Patient also states that he is in a new relationship and would like to get screened for STI. PMH: Reviewed and updated online. Medications: Reviewed and updated online. Allergies: Reviewed and updated online. Allergies Allergen Reactions Gabapentin Gastrointestinal Methocarbamol Gastrointestinal Social History: Reviewed and updated online. Objective: Vital signs noted online. BP 107/74 (BP Location: Right Arm, BP Cuff Size: Regular) Pulse (!) 104 Temp 36.9 ??C (98.4 ??F) (Oral) Resp 16 SpO2 99% NAD HEENT: NCAT. PERRL. EOMI. Sclerae and conjunctivae clear. No icterus. Nares are clear. Bilateral EAC & TM's are clear. Oropharynx clear. No tonsillar enlargement or exudate. Uvula is midline. Neck: Supple without adenopathy, thyromegaly, JVD, Carotid bruits or meningismus. Trachea is midline. Lungs: CTAB with normal effort. No rales, retractions, rhonchi or wheezes. CV: Mildly tachycardic without murmurs, S3 or S4. Skin: Good turgor with capillary refill less than 2 seconds. Assessment: Patient is a 44-year-old male who presents to the urgent care with clinical findings of acute pharyngitis-most likely viral. Differential includes strep versus viral etiology including possible COVID. There is no evidence of any deep space infection like retropharyngeal or peritonsillar abscess. Heis hemodynamically stable. Impression: 1. Pharyngitis, unspecified etiology 2. Routine screening for STI (sexually transmitted infection) Plan: We will treat him with some dexamethasone to help with the sore throat. A strep PCR is pending. COVID testing was declined. STI labs were ordered. STI precautions discussed. RTC p.r.n.. Orders Placed This Encounter Medications dexAMETHasone (DECADRON) 4 MG tablet Sig: Take 2 tablets today, one tomorrow and one in 3 days if throat still sore Dispense: 4 Tablet Refill: 0 Patient Instructions Exposure to Sexually Transmitted Infections: Care Instructions Overview Sexually transmitted infections (STIs) are infections spread by sexual contact. This includes genital vtxe-mn-qsge contact and vaginal, oral, and anal sex. If you're , you can also spread them to your baby before or during the . STIs are common. But they don't always cause symptoms. And if they are not treated, they can lead to health problems. Testing and treatment are important to help protect the health of you and your partner or partners. STIs caused by bacteria can go away with treatment. STIs caused by viruses can be treated to relieve symptoms, but treatment won't make them go away. Follow-up care is a michaels part of your treatment and safety. Be sure to make and go to all appointments, and call your doctor if you are having problems. It's also a good idea to know your test resultsand keep a list of the medicines you take. How can you care for yourself at home? Take medicines exactly as prescribed. If your doctor prescribed antibiotics, take them as directed. Don't stop taking them just because you feel better. You need to take the full course of antibiotics. Tell your sex partner or partners that they will need treatment. For certain STIs, your doctor may be able to prescribe treatment for any partners also. Don't have sexual contact while you have symptoms of an STI or are being treated for an STI. Don't douche. Douching changes the normal balance of bacteria in your vagina. It may increase the risk of spreading the infection to your uterus or other reproductive organs. How can you prevent sexually transmitted infections (STIs)? You can help prevent STIs if you wait to have sex with a new partner (or partners) until you've each been tested for STIs. It also helps if you use condoms and if you limit your sex partners to one person who has sex only with you. When should you call for help? Call 911 anytime you think you may need emergency care. For example, call if: You have sudden, severe pain in your belly or pelvis. Call your doctor now or seek immediate medical care if: You have new belly or pelvic pain. You have a fever. You have new or increased burning or pain with urination, or you cannot urinate. You have pain, swelling, or tenderness in the scrotum. You are and have any symptoms of an STI. Watch closely for changes in your health, and be sure to contact your doctor if: You have unusual vaginal bleeding. You have a discharge from the vagina, penis, or anus. You have any new symptoms, such as sores, bumps, rashes, blisters, or warts in the genital or anal area. You have itching, tingling, pain, or burning in the genital or anal area. You think you may have been exposed to an STI. You have a sore throat or sores in your mouth or on your tongue. Where can you learn more? 1. Go to https://www.[employer].Chilltime/healthlibrary. 2. Enter M049 in the search box. Current as of: September 14, 2023 Content Version: 14.1 ?? [employer]. Care instructions adapted under license by your healthcare professional. If you have questions about a medical condition or this instruction, always ask your healthcare professional. [employer] disclaims any warranty or liability for your use of this information. documented in this encounter Nursing Notes * Nabil Willoughby RN - 05/10/2024 12:40 PM CDT Chriss Powell is a 44 y.o.male presents to the Urgent Care for Pharyngitis Symptoms began: 1 day(s) ago. Fever: absent. Other associated symptoms: fever, myalgias, sore throat, sweats, and painful swallowing . Any recent close contact with an individual with a known similar illness (including COVID): yes: work. Current medications: acetaminophen, Theraflu. Patient requests an excuse letter for work/school: No documented in this encounter Plan of Treatment Upcoming Encounters Date Type Department Care Team (Late st Contact Info) Description 07/21/2024 9:30 AM CDT Appointment [address], [address] [place] [address] Dioni Gamble PA-C [address] [place] [address] documented as of this encounter Procedures Procedure Name Priority Date/Time Associated Diagnosis Comments STREP GROUP A, MOLECULAR DETECTION STAT 05/10/2024 12:41 PM CDT Pharyngitis, unspecified etiology documented in this encounter Results * Chlamydia & GC, Urine (05/10/2024 1:14 PM CDT) Chlamydia Trachomatis STD Not Detected Not Detected 05/11/2024 12:07 AM CDT [facility] N. gonorrhoeae STD Not Detected Not Detected 05/11/2024 12:07 AM CDT [facility] Urine STD (Urine for STD) Non-blood Collection / Unknown 05/10/2024 1:14 PM CDT 05/10/2024 1:14 PM CDT Narrative [facility] - 05/11/2024 12:07 AM CDT Test performed by Chocolate Finisher Mediated Amplification (TMA). Urine Volume submitted was greater than 30 ml. Excess collection volume may decrease test sensitivity. Recollection suggested if clinically indicated. Dennis PATRICIA [facility]_1 Performing Organization Address City/[facility]/ZIP Co de Phone Number [facility] [address] * Treponema Screen (05/10/2024 1:09 PM CDT) Pathologist [facility] Treponema Screen Interpretation Non Reactive Non Reactive 05/10/2024 6:30 PM CDT [facility] Blood Venipuncture / Unknown 05/10/2024 1:09 PM CDT 05/10/2024 1:09 PM CDT Dennis PATRICIA [facility]_1 Performing Organization Address [facility]/ZIP Co de Phone Number [facility] [address] [place], [place] [address] * Hepatitis C Antibody, with Reflex (05/10/2024 1:09 PM CDT) [facility] Hepatitis C Antibody Negative (Non Reactive) Negative (Non Reactive) 05/10/2024 8:55 PM CDT [facility] Comment:Antibodies to HCV no t detected. Does not exclude the possiblity of exposure to HCV. Blood Venipuncture / Unknown 05/10/2024 1:09 PM CDT 05/10/2024 1:09 PM CDT Dennis CORDON [facility]_1 Performing Organization Address [facility] de Phone Number [facility] [address] * HIV 1/2 Ag/Ab 4th Generation (05/10/2024 1:09 PM CDT) [facility] HIV 1/2 Antigen/Antib annetta (4th generation) Negative (Non Reactive) Negative (Non Reactive) 05/10/2024 8:55 PM CDT [facility] Comment:HIV-1 p24 Antigen an d HIV-1/HIV-2 Antibody not detected Blood Venipuncture / Unknown 05/10/2024 1:09 PM CDT 05/10/2024 1:09 PM CDT Dennis Robert CORDON [facility]_1 Performing Organization Address [facility] de Phone Number [facility] [address] * STREP GROUP A, Molecular Detection-Collect Now in current encounter (05/10/2024 12:41 PM CDT) [facility] Group A Strep Not Detected Not Detected 024 1:44 PM CDT [facility] Comment:Methodology: Qualita tive real-time PCR assay Swab (Source Required) THROAT SWAB / Unknown Non-blood Collection / Unknown 05/10/2024 12:41 PM CDT 05/10/2024 12:55 PM CDT Dennis CORDON [facility]_1 [facility] [address] [place] [address], [facility] documented in this encounter Visit Diagnoses Diagnosis Pharyngitis, unspecified etiology Routine screening for STI (sexually transmitted infection) Screening examination for venereal disease documented in this encounter Care Teams Investment Banker Relationship Specialty Start Date End Date No Primary/Referring, Phy PCP - General 11/25/22 4 documented as of this encounter
== END 2024-07-14 13:42 | disposition home or self-care (01) ==
LOC: NFLDREF 13:44
PROVIDERS: PCP Physician Assistant Medical; Visit Provider Internal Medicine
DX: R06.02 Shortness of breath (principal); Z57.5 Occupational exposure to toxic agents in other industries; Y99.0 Civilian activity done for income or pay
CPT/HCPCS: 80048

== ENCOUNTER 2024-10-06 11:03 | Outpatient (CLI) | payer OTHER, MEDICAID, SELFPAY ==
--- NOTE | 2024-10-06 11:00 | CRLHL7_ITS ---
For Patients: As a result of the Century Cures Act, medical imaging exams and procedure reports are released immediately into your electronic medical record. You may view this report before your referring provider. If you have questions, please contact your health care provider. Indication: WHEEZING, SOB, ASTHMA, EVAL FOR FIBROUS OR NODULES Technique: Noncontrast CT chest, including high-resolution inspiratory supine images Please note that all CT scans at this facility use dose modulation, iterative reconstruction, and/or weight-based dosing when appropriate to reduce radiation dose to as low as reasonably achievable. Comparison: Chest x-ray 07/14/2024 Findings: Visualized thyroid is within normal limits. Mild residual thymic tissue in the anterior mediastinum is present. Calcified right hilar lymph nodes are present representing sequela of granulomatous disease. Fatty infiltration of the liver. Incidental cysts within the liver also present measuring up to 1.2 cm. Gallbladder, adrenal glands, pancreas and spleen normal. No enlarged lymph nodes within the thorax. Osseous structures are unremarkable. Curvilinear reticular densities are present within the lower lobes bilaterally. In addition, there is a geographic area of ground-glass density within the right upper lobe measuring up to 3.2 cm. No pneumothorax or pleural effusion. No pulmonary edema. No suspicious pulmonary nodule. Impression: Curvilinear reticular densities in the lower lobes bilaterally suspicious for fibrotic change. Geographic ground-glass area within the right upper lobe measuring 3.2 cm, probably inflammatory. Pulmonary referral recommended. Please note that all CT scans at this facility use dose modulation, iterative reconstruction, and/or weight-based dosing when appropriate to reduce radiation dose to as low as reasonably achievable. Dictated by Chris Montgomery MD @ 10/06/2024 12:46:48 PM (Electronically Signed)
== END 2024-10-06 11:04 | disposition home or self-care (01) ==
PROVIDERS: PCP Physician Assistant Medical; Visit Provider Physician Assistant Medical
DX: J45.909 Unspecified asthma, uncomplicated (principal); R91.8 Other nonspecific abnormal finding of lung field
CPT/HCPCS: 71250

== ENCOUNTER 2024-11-17 14:39 | Outpatient (CLI) | payer MEDICAID, SELFPAY | END 2024-11-17 14:40 | disposition home or self-care (01) | LOC: CT 14:42 | PROVIDERS: PCP Physician Assistant Medical; Visit Provider Otolaryngology | DX: J32.9 Chronic sinusitis, unspecified (principal); J32.0 Chronic maxillary sinusitis | CPT/HCPCS: 70486 ==